=== PATIENT | female | born 1955 | race Caucasian/White ===

== ENCOUNTER → 2016-07-01 | Outpatient (CLI) | payer BC ==
[~2016-07-01] MED LIST: ACAI500C PO; CALC500T50 PO; CHOL10002 PO; CITA20SO PO; CYAN100016 SL; DOXY-103 PO; GLUC1CAP48 PO; HYDR12.58 PO; HYDR50TA6 PO; LEVO112T4 PO; LEVO137T3 PO; LYSI500T3 PO; MESA1.2T PO; MULT-245 PO; OMEP20CA9 PO; OMEP40CA5 PO; OXYB5TAB7 PO; PSEU120T9 PO; TRAM50TA PO; [UNRECOGNIZED DRUG - OTHER]; [UNRECOGNIZED DRUG - OTHER]; [UNRECOGNIZED DRUG - OTHER]; [UNRECOGNIZED DRUG - OTHER]; [UNRECOGNIZED DRUG - REMARK]; [UNRECOGNIZED DRUG - REMARK]; calcium mag zinc; protein; protein powder
[2016-07-01 11:59] LABS: BILIRUBIN,URINE NEGATIVE (NEG); GLUCOSE,URINE NEGATIVE (NEG); NITRITE,URINE NEGATIVE (NEG); PH,URINE 6.5; PROTEIN,URINE NEGATIVE (NEG-TRACE); UROBILINOGEN,URINE 0.2 mg/dL (0.2 mg/dL)
[2016-07-01 12:25] LABS: BACTERIA,URINE 0 /HPF (0-FEW); RBC,URINE OCC /HPF (0-2); SQUAMOUS EPITHELIAL CELL,UR OCC /LPF; WBC,URINE OCC /HPF (0-4)
--- NOTE | 2016-07-01 12:52 | EKG ---
[facility] [address] [place] [address] Test Date: 2016-07-01 Test Time: 12:51:49 Pat Name: MONICA HAN Department: Room: Gender: F Assisted Living Associate: : 1955 Requested By: ALMA DELIA LION Order Number: [id number] Reading MD: Woody Gan Measurements Intervals [place] Rate: 56 P: 36 NE: 154 QRS: -8 QRSD: 102 T: 46 QT: 442 QTc: 429 Interpretive Statements SINUS RHYTHM LEFTWARD AXIS LOW LIMB LEAD VOLTAGE QRS(T) CONTOUR ABNORMALITY CONSISTENT WITH ANTEROSEPTAL INFARCT Electronically Signed On 07-04-2016 8:26:41 CDT by Woody Gan
[2016-07-01 12:56] LABS: BASO # 0.1 x10^3/uL (0.0-0.2); BASO % 1 % (0-3); EOS % 4 % (0-3); HEMATOCRIT 39.4 % (36.0-47.0); HEMOGLOBIN 13.3 g/dL (12.0-15.5); LYMPH # 1.8 x10^3/uL (1.0-4.8); LYMPH % 27 % (24-48); MEAN CORPUSCULAR HEMOGLOBIN 30 pg (25-35); MEAN CORPUSCULAR HGB CONC 34 g/dL (31-37); MEAN CORPUSCULAR VOLUME 90 fL (79-100); MONO % 7 % (0-9); NEUT % 61 % (31-73); PLATELET COUNT 285 x10^3/uL (140-400); RED BLOOD COUNT 4.36 x10^6/uL (3.50-5.40); RED CELL DISTRIBUTION WIDTH 12.6 % (11.5-14.5); WHITE BLOOD COUNT 6.6 x10^3/uL (4.0-11.0)
[2016-07-01 13:02] LABS: ALBUMIN 4.1 g/dL (3.4-5.0); CALCIUM 9.2 mg/dL (8.5-10.1); CREATININE 0.7 mg/dL (0.6-1.0); GFR 85.6; POTASSIUM 3.4 mmol/L (3.5-5.1)
[2016-07-01 13:09] LABS: PROTHROMBIN TIME PATIENT 12.8 SEC (11.7-14.0)
--- NOTE | 2016-07-01 17:15 | RAD ---
PA and lateral chest radiographs 07/01/2016 Clinical history: Preoperative evaluation prior to hip replacement. PA and lateral digital radiographs of the chest were obtained. No previous studies are available for comparison. The cardiac silhouette is normal in size. The thoracic aorta is minimally tortuous. No acute pulmonary infiltrate is seen. No pleural effusion or pneumothorax is noted. Minimal degenerative changes are seen involving the thoracic spine. Impression: No acute abnormality is seen.
== END | disposition home or self-care (01) ==
LOC: SURGPAT 12:15
PROVIDERS: ATTEND Orthopaedic Surgery
DX: Z01.818 Encounter for other preprocedural examination (principal); M16.11 Unilateral primary osteoarthritis, right hip
CPT/HCPCS: 36415; 71020; 80048; 81001; 82040; 85027; 85610; 85651; 85730; 87086; 87641; 93005

== ENCOUNTER 2016-07-16 05:57 | Inpatient (IN) | payer BC ==
[~2016-07-16] VITALS: Ht 167.6 cm; Wt 74.8 kg
[2016-07-16] VITALS (8 sets, daily range): BP systolic 112–145; BP diastolic 59–75
[2016-07-16] MEDS ORDERED: TRANEXAMIC ACID 1,000 MG in IV NORMAL SALINE 50ML 50 ML INJ ONE ×2 (06:00→08:00)
[2016-07-16] MEDS ORDERED: LIDOCAINE 1% 1 ML SYRINGE. ID PRN (07:00)
[2016-07-16] MEDS ORDERED: IV RINGERS,LACTATED 1000ML 1,000 ML IV SCH (07:00)
[2016-07-16] MEDS ORDERED: MORPHINE SULFATE 2 MG/ML DISP.SYRIN. IV PRN ×2 (07:00→11:30)
[2016-07-16] MEDS ORDERED: fentaNYL PF VIAL 100 MCG/2 ML VIAL IV PRN ×3 (07:00→11:30)
[2016-07-16] MEDS ORDERED: HYDROmorphone 2 MG/ML VIAL IV PRN (07:00)
[2016-07-16] MEDS ORDERED: PROCHLORPERAZINE 10 MG/2 ML VIAL. IV PRN ×2 (07:00→11:30)
[2016-07-16 07:12] LABS: INR 1.1 (0.8-1.1); PROTHROMBIN TIME PATIENT 13.5 SEC (11.7-14.0)
[2016-07-16] MEDS ORDERED: PROPOFOL 20 ML IV ONE ×2 (07:15→08:18)
[2016-07-16] MEDS ORDERED: ROCURONIUM 50 MG/5 ML VIAL. ONE (07:16)
[2016-07-16] MEDS ORDERED: LIDOCAINE 2% 100 MG/5 ML SYRINGE. ONE (07:16)
[2016-07-16] MEDS ORDERED: ONDANSETRON PF 4 MG/2 ML VIAL. ONE (07:17)
[2016-07-16] MEDS ORDERED: FAMOTIDINE 20 MG/2 ML VIAL ONE (07:17)
[2016-07-16] MEDS ORDERED: MIDAZOLAM HCL/PF 2 MG/2 ML VIAL. ONE (07:18)
[2016-07-16] MEDS ORDERED: fentaNYL PF VIAL 250 MCG/5 ML VIAL ONE (07:18)
[2016-07-16] MEDS ORDERED: DEXAMETHASONE SOD PHOS 20 MG/5 ML VIAL. ONE (07:18)
[2016-07-16] MEDS ORDERED: HYDROCODONE/APAP 7.5/325MG TABLET. ONE (07:18)
[2016-07-16] MEDS ORDERED: HYDROCODONE/APAP 7.5/325MG TABLET. PO ONE (07:30)
[2016-07-16] MEDS ORDERED: MORPHINE SULFATE 5 MG, KETOROLAC TROMETHAMINE 30 MG, ROPIVacaine 0.5% PF 60 ML, EPINEPH... INT ART ONE ×5 (08:00)
--- NOTE | 2016-07-16 08:20 | HP ---
ADMIT DATE: 07/16/2016 CHIEF COMPLAINT: Right hip pain. HISTORY OF PRESENT ILLNESS: The patient has ongoing right hip and groin pain with activity, minimally responsive to intra-articular injection. She is exhausted, nonoperative treatment alternatives and wants to proceed with a total hip arthroplasty as we had previously discussed risks, benefits, postoperative course, specifically the anterior approach. PAST MEDICAL HISTORY: Significant for hypothyroidism, palpitations, allergic rhinitis, borderline hypertension and perimenopausal. PAST SURGICAL HISTORY: Thyroidectomy, middle finger surgery, ablation of her thyroid, eyelid surgery and lumbar laminectomy. FAMILY HISTORY: Noncontributory to the current situation. SOCIAL HISTORY: She is a former smoker, quit over 10 years ago, smoked about 20 years, , one child. Minimal social drinker of alcohol, denies drug use. MEDICATIONS: List is reviewed, tramadol. ALLERGIES: She has no known drug allergies, but tramadol gets her a little bit of a hot feeling. REVIEW OF SYSTEMS: Denies fever, chills, chest pain, shortness of breath or any other constitutional symptoms at this time. PHYSICAL EXAMINATION: VITAL SIGNS: Per admission sheet. HEENT: Atraumatic, normocephalic. HEART: Regular rate and rhythm. LUNGS: Clear to auscultation bilaterally. ABDOMEN: Benign. EXTREMITIES: Examination of the right hip reveals tenderness on any extremes of motion of the hip with pain throughout range of motion. Leg lengths are equal. Normal examination of the contralateral hip. IMAGING: X-rays show severe degenerative changes of the right hip with elimination of joint space, no bony collapse. IMPRESSION: Degenerative joint disease, right hip. TREATMENT PLAN: I had previously gone over with her the possibility of total hip arthroplasty. Risks, benefits, postoperative course including possibility of infection, nerve or blood vessel damage, medical or other anesthetic complications and instability, premature wear or loosening, among others. All her questions were answered. She is going to undergo total hip arthroplasty today with joint center admission to follow. ALMA DELIA LION MD DR: TONIA/rosalva JOB#: [id number] / [id number]
[2016-07-16] MEDS ORDERED: SEVOFLURANE > 120 MINUTES. IH ONE (08:33)
[2016-07-16] MEDS ORDERED: ePHEDrine PF IN SALINE 50 MG/5 ML DISP.SYRIN IV ONE (08:48)
[2016-07-16] MEDS ORDERED: GLYCOPYRROLATE 1 MG/5 ML VIAL. ONE (09:19)
[2016-07-16] MEDS ORDERED: NEOSTIGMINE METHYLSULFATE 5 MG/5 ML SYRINGE. ONE (09:19)
[2016-07-16] MEDS ORDERED: ALBUMIN HUMAN 5% 500 ML IV ONE (10:25)
[2016-07-16] MEDS ORDERED: MORPHINE SULFATE 10 MG/ML VIAL. ONE (10:50)
[2016-07-16] MEDS ORDERED: fentaNYL PF VIAL 100 MCG/2 ML VIAL ONE (11:21)
[2016-07-16] MEDS ORDERED: DEXTROSE 50% 25 GM / 50ML DISP.SYRIN. IV PRN (11:30)
[2016-07-16] MEDS ORDERED: HYDROCODONE/APAP 10/325 TABLET. PO PRN (11:30)
[2016-07-16] MEDS ORDERED: ZOLPIDEM 5 MG TABLET. PO PRN (11:30)
[2016-07-16] MEDS ORDERED: MORPHINE SULFATE 10 MG/ML VIAL. IV PRN (11:30)
[2016-07-16] MEDS ORDERED: diphenhydrAMINE 50 MG/ML VIAL IV PRN (11:30)
[2016-07-16] MEDS ORDERED: ACETAMINOPHEN 325 MG TABLET. PO PRN (11:30)
[2016-07-16] MEDS ORDERED: OXYCODONE/APAP 7.5/325 TABLET. PO PRN (11:30)
[2016-07-16] MEDS ORDERED: CALCIUM CARBONATE 500 MG TAB.CHEW PO PRN (11:30)
[2016-07-16] MEDS ORDERED: MORPHINE SULFATE 4 MG/ML DISP.SYRIN. IV PRN ×2 (11:30)
[2016-07-16] MEDS ORDERED: 0.9 % SODIUM CHLORIDE 10 ML DISP.SYRIN. IV PRN (11:30)
[2016-07-16] MEDS ORDERED: TRAMADOL 50 MG TABLET. PO PRN ×2 (11:30)
[2016-07-16] MEDS: fentaNYL PF VIAL 100 MCG/2 ML VIAL IV PRN ×4 (11:37→12:19)
--- NOTE | 2016-07-16 11:44 | PDOC ---
BRIEF OPERATIVE NOTE Date: Jul 16, 2016 Pre-Op Diagnosis djd right hip Post-Op Diagnosis same Procedure Performed right total hip arthroplasty Surgeon Li Hernandez Anesthesia Type: General Blood Loss 300cc Specimens Obtained femoral head to pathology Findings above Complications none ALMA DELIA LION MD Jul 16, 2016 11:44
--- NOTE | 2016-07-16 12:06 | RAD ---
Post radiograph History: Postoperative. Comparison: None. Findings: AP view of the pelvis. Right total hip arthroplasty is present. There is at least one acetabular screw. On this frontal view, relationship of femoral head component to the acetabular cup appears anatomic. Presence of soft tissue gas is compatible with recent postoperative status. Impression: Postoperative changes of right total hip arthroplasty.
[2016-07-16] MEDS: IV NORMAL SALINE 1000ML BAG 1,000 ML IV SCH ×2 (13:00→21:00)
[2016-07-16] MEDS: IV DEXTROSE 5 %-0.45 % NACL 1,000 ML IV SCH ×2 (13:01→23:00)
[2016-07-16] MEDS ORDERED: WARFARIN 7.5 MG TABLET. PO ONE (16:00)
[2016-07-16] MEDS: FERROUS SULFATE 325 MG TABLET. PO SCH (17:46)
[2016-07-16] MEDS: CELECOXIB 200 MG CAPSULE. PO SCH (20:32)
[2016-07-17 03:23] VITALS: BP 117/57
[2016-07-17] MEDS: HYDROCODONE/APAP 7.5/325MG TABLET. PO PRN ×2 (04:16→08:25)
[2016-07-17] MEDS ORDERED: MAGNESIUM HYDROXIDE 2,400 MG/30 ML ORAL.SUSP. PO PRN (06:00)
[2016-07-17 06:17] VITALS: BP 121/57
[2016-07-17] MEDS: LEVOTHYROXINE 112 MCG TABLET PO SCH (07:09)
[2016-07-17] MEDS: PANTOPRAZOLE 40 MG TABLET.DR. PO SCH (07:09)
[2016-07-17] MEDS: SENNOSIDES/DOCUSATE 8.6/50MG TABLET. PO SCH (08:23)
[2016-07-17] MEDS: PSEUDOEPHEDRINE ER 120 MG TABLET.ER. PO SCH (08:23)
[2016-07-17] MEDS: CHOLECALCIFEROL (VITAMIN D3) 1,000 UNIT TABLET PO SCH (08:23)
[2016-07-17] MEDS: OXYBUTYNIN CHLORIDE 5 MG TABLET PO SCH (08:24)
[2016-07-17] MEDS: CYANOCOBALAMIN (VITAMIN B-12) 1,000 MCG TABLET. PO SCH (08:24)
[2016-07-17] MEDS: CITALOPRAM 20 MG TABLET. PO SCH (08:24)
[2016-07-17] MEDS: FERROUS SULFATE 325 MG TABLET. PO SCH ×2 (08:24→17:18)
[2016-07-17] MEDS: MESALAMINE 1.2 GM TABLET.DR PO SCH (08:24)
[2016-07-17] MEDS: MULTIVITAMIN with MINERAL TABLET. PO SCH (08:24)
[2016-07-17] MEDS: CELECOXIB 200 MG CAPSULE. PO SCH ×2 (08:25→20:43)
[2016-07-17] MEDS: HYDROCHLOROTHIAZIDE 25 MG TABLET PO SCH (08:25)
[2016-07-17 08:40] LABS: INR 2.1 (0.8-1.1); PROTHROMBIN TIME PATIENT 22.3 SEC (11.7-14.0)
[2016-07-17 08:54] LABS: HEMATOCRIT 25.8 % (36.0-47.0); HEMOGLOBIN 8.9 g/dL (12.0-15.5)
[2016-07-17] MEDS ORDERED: NON FORMULARY ITEM (Multivitamin (Multi Vitamin Daily) 1 EACH) PO SCH (09:00)
[2016-07-17] MEDS: IV DEXTROSE 5 %-0.45 % NACL 1,000 ML IV SCH ×2 (09:00→11:39)
[2016-07-17] MEDS: OXYCODONE/APAP 5/325 TABLET. PO PRN ×2 (12:23→17:19)
--- NOTE | 2016-07-17 14:45 | PDOC ---
PROGRESS NOTES Subjective Subjective Problems overnight: Got up and around well with significantly less pain than preoperatively Objective Vital Signs Vital Signs Date Time Temp Pulse Resp B/P Pulse Ox O2 Delivery O2 Flow Rate FiO2 07/17/16 12:23 16 Room Air 07/17/16 09:30 95 07/17/16 06:26 98.4 98.4 07/17/16 06:17 72 121/57 07/16/16 15:15 2.0 Physical Exam Hip incision clean dry intact leg lengths equal good stability neurovascular status intact Labs Laboratory Tests Test 07/16/16 06:30 07/17/16 08:15 Prothrombin Time 13.5SEC (11.7-14.0) 22.3SEC (11.7-14.0) Prothromb Time International Ratio 1.1 (0.8-1.1) 2.1 (0.8-1.1) Activated Partial Thromboplast Time 32SEC (24-38) Hemoglobin 8.9g/dL (12.0-15.5) Hematocrit 25.8% (36.0-47.0) Mean Corpuscular Hemoglobin Concent 35g/dL (31-37) Laboratory Tests Test 07/17/16 08:15 Hemoglobin 8.9g/dL (12.0-15.5) Hematocrit 25.8% (36.0-47.0) Mean Corpuscular Hemoglobin Concent 35g/dL (31-37) Prothrombin Time 22.3SEC (11.7-14.0) Prothromb Time International Ratio 2.1 (0.8-1.1) Imaging Postop x-rays show equal leg lengths excellent positioning total hip arthroplasty components Assessment Assessment POD# [1], S/P [right total hip arthroplasty] Problems: Plan Plan of Care Weightbearing as tolerated no hip precautions secondary to anterior approach Coumadin anticoagulation Planned outpatient physical therapy on discharge ALMA DELIA LION MD Jul 17, 2016 14:45
[2016-07-17] MEDS ORDERED: BISACODYL 10 MG SUPP.RECT. PR PRN (16:00)
[2016-07-17 18:02] VITALS: BP 115/66
[2016-07-17] MEDS: IV NORMAL SALINE 1000ML BAG 1,000 ML IV SCH (20:43)
--- NOTE | 2016-07-17 23:16 | OP ---
DATE OF SURGERY: 07/16/2016 PREOPERATIVE DIAGNOSIS: Degenerative joint disease of right hip. POSTOPERATIVE DIAGNOSIS: Degenerative joint disease of right hip. PROCEDURE: Right total hip arthroplasty with anterior approach. SURGEON: Devin Jefferson M.D. ANESTHESIA: General. ESTIMATED BLOOD LOSS: 250 mL. COMPLICATIONS: None. OPERATIVE INDICATIONS: The patient is a 60-year-old female with severe right hip pain that has been ongoing for some time, unresponsive to nonoperative treatment and worsening to the point where it really affects her activities of daily living particularly over the past several months. I had gone over with her the x-ray findings, operative and nonoperative treatment options as well as risks, benefits, postoperative course of possible total hip arthroplasty. She prefers an anterior approach after the research that she has done and we talked about the possibility even with that surgery of leg length inequality, infection, nerve or blood vessel damage, premature wear or loosening, medical or other anesthetic complications among others. All of her questions were answered. Consent was obtained and she agrees to proceed with operative evaluation and treatment. DESCRIPTION OF PROCEDURE: The patient was identified, procedure verified, patient placed in the supine position on the [place] fracture table. After adequate amounts of general endotracheal anesthesia were administered, she was positioned on the table. Both legs were placed in traction boots and the right arm well padded and placed across the body. Right hip was prepped and draped in standard sterile fashion. After timeout was performed, the patient and procedure identified and verified. Fluoroscopic guidance was used to assess the initial position and leg lengths. An incision was made just distal and lateral to the anterior superior iliac spine along the line of the tensor fascia krystle. Dissection carried out down to the fascia of the tensor fascia krystle, which was divided and the tensor muscle was bluntly dissected and brought laterally. The interval between the tensor fascia krystle and rectus femoris was done, located and the anterior circumflex vessels were coagulated with electrocautery. Fat was elevated off the anterior capsule, was split in a T fashion. Femoral neck was then cut in a fashion under fluoroscopy and the femoral head was removed and sized at approximately a size 43. Labrum and contents of the fovea were excised. Reaming was carried up to a size 48 and a size 50 Cade Continuum acetabular liner was then impacted in anatomic alignment and a single superiorly directed acetabular screw helped to provide backup fixation. Trial 32 mm head liner was then placed and the femur was prepared by bringing the leg into extension, external rotation and abduction with a capsular release performed to avoid release of the external rotators posteriorly. Femur was then prepared with a box osteotome and canal finder and broaching carried out up to a size 4 with Avenir Chambers Stem, which was trial fit and leg lengths were equalized under fluoroscopic guidance. She had excellent stability in all planes with a +0 neck length and with a +35 was noted to have an increased leg length and offset. Trial components were then removed. Irrigation carried out with normal saline solution. A vitamin E 32 mm inside diameter acetabular neutral liner was impacted into place. Size 4 standard Avenir Cade stem was placed and given that the stem slightly than the broach. After trial fitting a +3.5, 32 mm ceramic head was tapped in place to engage the P[place]or taper and was reduced. Hip was then taken through range of motion. Leg lengths were reestablished exactly. Excellent stability and offset were noted under fluoroscopic guidance, thorough irrigation carried out with normal saline solution. Hemovac drain and pain catheter were placed. The tissues were infused with a pain catheter mixture throughout the pericapsular and subcutaneous space and the fascia was closed with #1 Vicryl sutures, subcutaneous closure with buried Vicryl suture in a layered fashion, subcuticular closure with 4-0 Monocryl. The patient was extubated and transferred to postop holding in stable condition having tolerated the procedure well. DEVIN JEFFERSON MD DR: TONIA/rosalva JOB#: [id number] / [id number] I Arana APRN
[2016-07-18 05:23] LABS: PROTHROMBIN TIME PATIENT 29.1 SEC (11.7-14.0)
[2016-07-18 06:09] VITALS: BP 104/64
[2016-07-18] MEDS: PANTOPRAZOLE 40 MG TABLET.DR. PO SCH (06:11)
[2016-07-18] MEDS: LEVOTHYROXINE 112 MCG TABLET PO SCH (06:11)
[2016-07-18] MEDS: OXYCODONE/APAP 5/325 TABLET. PO PRN ×4 (06:18→23:58)
[2016-07-18 07:02] LABS: HEMATOCRIT 23.7 % (36.0-47.0); HEMOGLOBIN 8.1 g/dL (12.0-15.5)
[2016-07-18] MEDS: CHOLECALCIFEROL (VITAMIN D3) 1,000 UNIT TABLET PO SCH (08:04)
[2016-07-18] MEDS: CYANOCOBALAMIN (VITAMIN B-12) 1,000 MCG TABLET. PO SCH (08:04)
[2016-07-18] MEDS: MULTIVITAMIN with MINERAL TABLET. PO SCH (08:05)
[2016-07-18] MEDS: OXYBUTYNIN CHLORIDE 5 MG TABLET PO SCH (08:05)
[2016-07-18] MEDS: FERROUS SULFATE 325 MG TABLET. PO SCH ×2 (08:05→17:00)
[2016-07-18] MEDS: SENNOSIDES/DOCUSATE 8.6/50MG TABLET. PO SCH (08:05)
[2016-07-18] MEDS: MESALAMINE 1.2 GM TABLET.DR PO SCH (08:06)
[2016-07-18] MEDS: PSEUDOEPHEDRINE ER 120 MG TABLET.ER. PO SCH (08:06)
[2016-07-18] MEDS: HYDROCHLOROTHIAZIDE 25 MG TABLET PO SCH (08:06)
[2016-07-18] MEDS: CITALOPRAM 20 MG TABLET. PO SCH (08:06)
[2016-07-18] MEDS: CELECOXIB 200 MG CAPSULE. PO SCH ×2 (08:06→21:15)
--- NOTE | 2016-07-18 10:45 | PDOC ---
ORTHO PROGRESS NOTES Subjective Patient reports that she is doing well. Complains of some muscle soreness in the leg but tolerable. Doing well with therapy. Pain is controlled with pain medication. Denies chest pain or shortness of breath, complains of some numbness around the incision. Post-op Day: 2 (Right total hip) Vitals Vital Signs Date Time Temp Pulse Resp B/P Pulse Ox O2 Delivery O2 Flow Rate FiO2 07/18/16 09:23 16 Room Air 07/18/16 07:16 97 07/18/16 06:09 99.3 78 104/64 99.3 Labs Laboratory Tests Test 07/17/16 08:15 07/18/16 04:20 Hemoglobin 8.9g/dL (12.0-15.5) 8.1g/dL (12.0-15.5) Hematocrit 25.8% (36.0-47.0) 23.7% (36.0-47.0) Mean Corpuscular Hemoglobin Concent 35g/dL (31-37) 34g/dL (31-37) Prothrombin Time 22.3SEC (11.7-14.0) 29.1SEC (11.7-14.0) Prothromb Time International Ratio 2.1 (0.8-1.1) 3.0 (0.8-1.1) Laboratory Tests Test 07/18/16 04:20 Hemoglobin 8.1g/dL (12.0-15.5) Hematocrit 23.7% (36.0-47.0) Mean Corpuscular Hemoglobin Concent 34g/dL (31-37) Prothrombin Time 29.1SEC (11.7-14.0) Prothromb Time International Ratio 3.0 (0.8-1.1) Notes Patient is awake and alert sitting up in chair. Breathing unlabored, no acute distress. Neurovascular intact right lower extremity. Incision covered with dressing, no drainage. Mild to moderate edema Problems: (1) Degenerative joint disease of right hip Assessment and Plan Continue physical therapy, weightbearing as tolerated Anticoagulation per pharmacy Pain controlled Anticipate discharge home tomorrow Problem Qualifiers (1) Degenerative joint disease of right hip: Osteoarthritis type: primary Qualified Code: M16.11 - Unilateral primary osteoarthritis, right hip SALEEM VILCHIS APRN Jul 18, 2016 10:45
[2016-07-18 17:38] VITALS: BP 130/65
[2016-07-19 05:00] LABS: INR 2.2 (0.8-1.1); PROTHROMBIN TIME PATIENT 22.7 SEC (11.7-14.0)
[2016-07-19 06:00] VITALS: BP 100/65
[2016-07-19] MEDS: PANTOPRAZOLE 40 MG TABLET.DR. PO SCH (06:20)
[2016-07-19] MEDS: LEVOTHYROXINE 112 MCG TABLET PO SCH (06:20)
[2016-07-19] MEDS: OXYCODONE/APAP 5/325 TABLET. PO PRN ×4 (06:23→15:46)
[2016-07-19] MEDS: MESALAMINE 1.2 GM TABLET.DR PO SCH (09:11)
[2016-07-19] MEDS: CYANOCOBALAMIN (VITAMIN B-12) 1,000 MCG TABLET. PO SCH (09:12)
[2016-07-19] MEDS: MULTIVITAMIN with MINERAL TABLET. PO SCH (09:12)
[2016-07-19] MEDS: CELECOXIB 200 MG CAPSULE. PO SCH (09:12)
[2016-07-19] MEDS: PSEUDOEPHEDRINE ER 120 MG TABLET.ER. PO SCH (09:12)
[2016-07-19] MEDS: HYDROCHLOROTHIAZIDE 25 MG TABLET PO SCH (09:13)
[2016-07-19] MEDS: CITALOPRAM 20 MG TABLET. PO SCH (09:13)
[2016-07-19] MEDS: FERROUS SULFATE 325 MG TABLET. PO SCH (09:13)
[2016-07-19] MEDS: CHOLECALCIFEROL (VITAMIN D3) 1,000 UNIT TABLET PO SCH (09:14)
[2016-07-19] MEDS: SENNOSIDES/DOCUSATE 8.6/50MG TABLET. PO SCH (09:14)
[2016-07-19] MEDS: OXYBUTYNIN CHLORIDE 5 MG TABLET PO SCH (09:14)
[2016-07-19 10:14] LABS: HEMATOCRIT 23.2 % (36.0-47.0); HEMOGLOBIN 8.1 g/dL (12.0-15.5)
[2016-07-19] MEDS ORDERED: WARF2TAB7 PO (11:15)
[2016-07-19] MEDS ORDERED: OXYC-323 PO (11:16)
[2016-07-19] MEDS ORDERED: FERR-26 PO (11:16)
[2016-07-19] MEDS ORDERED: SENN-37 PO (11:17)
[2016-07-19] MEDS ORDERED: WARFARIN 2 MG TABLET. PO ONE (13:00)
[2016-07-19 13:52] VITALS: BP 143/64
--- NOTE | 2016-07-19 14:18 | PATHOLOGY ---
PATHOLOGY REPORT * * * * * * * * FINAL DIAGNOSIS: Femoral head and soft tissue, "right hip bone and soft tissue," joint resection: - Degeneration of cartilage with eburnation consistent with degenerative joint disease. (ALEXANDRA:; d/t: 07/19/16) REPORT ELECTRONICALLY SIGNED BY: Prashant Beckett M.D. DATE/TIME: 07/19/2016 14:07 * * * * * * * * GROSS PATHOLOGY: Received in formalin labeled "Monica Han, right hip bone and tissue," is a femoral head measuring 5.2 x 5.2 x 3.5 cm in aggregate dimensions upon reconstruction, and separately submitted femoral neck measuring 3.5 x 3.2 x 1.0 cm. The articular surface is pale reyes to light reyes and granular in appearance with evidence of eburnation. Sectioning the bone reveals light reyes cut surfaces. Toe Lining Closer tissue is submitted in cassette A1, following decalcification. (CAA; 07/18/2016) INITIAL CPT CODE(S): A; 22908, 22039 Professional services performed by [id number] [place] [address] Technical services performed by [id number] at [address] [place] [address] [address], [place] [address]. SPECIMEN(S) RECEIVED: A.Right hip bone and tissue CLINICAL HISTORY: DJD right hip PATIENT: MONICA HAN /AGE: 7 1955 (Age: 60) PATIENT #: [id number] ALT CASE #: SPECIMEN COLLECTION DATE: 07/16/2016 SPECIMEN RECEIVED DATE: 07/17/2016 [facility] - [address] [place] [address] - PHONE: [phone] * * * END OF REPORT * * *
--- NOTE | 2016-07-19 19:59 | DS ---
DATE OF DISCHARGE: 07/19/2016 PRINCIPAL DIAGNOSIS: Degenerative joint disease of right hip. PROCEDURE: Right total hip arthroplasty. DISCHARGE INSTRUCTIONS: Include weightbearing as tolerated. No total hip precautions due to anterior approach. Report any redness, drainage, fever, chills, uncontrolled pain or other problems. Follow up with Dr. Jefferson in 2 weeks. DISCHARGE MEDICATIONS: Include Percocet 5/325 one p.o. q. 6 hours p.r.n. pain, Coumadin per anticoagulation clinic, note that she is on hold with Coumadin currently due to increased INR with her first dose. I also discussed with her maintaining a steady intake of especially green vegetables to help regulation of the Coumadin. BRIEF DESCRIPTION OF HOSPITAL COURSE: The patient underwent an uncomplicated total hip arthroplasty through an anterior approach on 07/16/2016. Postoperatively, was doing well, got up and around well with physical therapy, is very pleased with her current progress. Pain is well controlled and was discharged home with planned outpatient physical therapy. ALMA DELIA JEFFERSON MD DR: TONIA/rosalva JOB#: [id number] / [id number]
== END 2016-07-19 16:00 | disposition home or self-care (01) | DRG 470 ==
LOC: OPSVCIP 05:57 → 4 SOUTHEST 12:40
PROVIDERS: ADMIT Orthopaedic Surgery; ATTEND Orthopaedic Surgery
PROC: 0SR90JZ Replacement of Right Hip Joint with Synthetic Substitute, Open Approach (ICD-10-PCS; principal; 2016-07-17)
DX: M16.11 Unilateral primary osteoarthritis, right hip (principal); E03.9 Hypothyroidism, unspecified; I10 Essential (primary) hypertension; Z87.891 Personal history of nicotine dependence
CPT/HCPCS: 36415; 72170; 76000; 85014; 85018; 85610; 85730; 86850; 86900; 86901; 88304; 88311; C1887; J0171; J0690; J1100; J1885; J2250; J2270; J2405; J2704; J2710; J2795; J3010; J3490; J7030; J7120; P9045; S0028; 97116; 97150; 97530

== ENCOUNTER → 2017-05-28 | Outpatient (CLI) | payer BC | END | disposition home or self-care (01) | LOC: KCIC MAMMO 07:50 | DX: Z12.31 Encounter for screening mammogram for malignant neoplasm of breast (principal) | CPT/HCPCS: 77067 ==

== ENCOUNTER 2019-11-04 12:53 | Inpatient (IN) | payer BC, OTHER ==
[~2019-11-04] VITALS: Ht 170.2 cm; Wt 72.1 kg
[~2019-11-04 12:53] MED LIST changes: -CALC500T50 PO; +CALC500T54 PO; -CITA20SO PO; +CITA20SO2 PO; -DOXY-103 PO; +DOXY100T27 PO; +FERR325T14 PO; -LEVO112T4 PO; +LEVO112T49 PO; +LIALDA1.2 GM PO; -MESA1.2T PO; +OMEP20CA16 PO; -OMEP20CA9 PO; +OMEP40CA45 PO; -OMEP40CA5 PO; +OXYB5TAB10 PO; -OXYB5TAB7 PO; +OXYC1TAB15 PO; +SENN-37 PO; +WARF2TAB96 PO
[2019-11-04] MEDS ORDERED: MOME17SP NS (14:00)
[2019-11-04] MEDS ORDERED: LEVO112T49 PO (14:00)
[2019-11-04] MEDS ORDERED: GLUC-11 PO (14:00)
[2019-11-04] MEDS ORDERED: OMEG1CAP38 PO (14:00)
[2019-11-04] MEDS ORDERED: ONDANSETRON PF 4 MG/2 ML VIAL. IVP PRN (14:45)
[2019-11-04] MEDS ORDERED: MORPHINE SULFATE 2 MG/ML VIAL. IV PRN (14:45)
[2019-11-04 15:00] VITALS: BP 128/62
[2019-11-04] MEDS ORDERED: PIP/TAZO PER PHARMACY MC PRN (15:00)
[2019-11-04] MEDS ORDERED: PIPERACILLIN/TAZOBACTAM 3.375 GM in IV NORMAL SALINE 50ML 50 ML IV ONE (15:15)
--- NOTE | 2019-11-04 15:45 | NUR ---
Spoke with Maritza in OP radiology re: uploading pt's CD for viewing for Dr. Peralta. CD taken to radiology.
--- NOTE | 2019-11-04 16:00 | NUR ---
Covid swab collected and taken to lab.
[2019-11-04] MEDS: IV NORMAL SALINE 1000ML BAG 1,000 ML IV SCH (16:04)
[2019-11-04 19:00] VITALS: BP 127/60
[2019-11-04 19:07] LABS: CALCIUM 9.1 mg/dL (8.5-10.1); CREATININE 0.8 mg/dL (0.6-1.0); GFR 72.4; POTASSIUM 3.2 mmol/L (3.5-5.1)
--- NOTE | 2019-11-04 19:16 | PDOC1 ---
History and Physical Date of Service: DOS: DATE: 11/04/19 TIME: 19:13 Chief Complaint: Problems: (1) Degenerative joint disease of right hip Chief Complain: Abdominal pain History of Present Illness: HPI: This is a 64-year-old who is been having abdominal pain for about 48 hours She was sent to the imaging center as an outpatient Apparently her CAT scan showed appendicitis She was sent as a direct admit She is now been examined on medical floor where she is awaiting surgery I think is can happen tomorrow morning Allergies: Allergies: Coded Allergies: aluminum (Verified Allergy, Intermediate, 07/18/16) METAL nickel (Verified Allergy, Intermediate, 07/18/16) METAL Family History: Family History: Hypertension Social History: Social History: She does not drink smoke or take drugs Current Medications: Current Medications Current Medications Sodium Chloride 1,000 ml @ 75 mls/hr [id number] IV Last administered on 11/04/19at 16:04; Start 11/04/19 at 14:45 Ondansetron HCl (Zofran) 4 mg PRN Q4HRS PRN IVP NAUSEA/VOMITING; Start 11/04/19 at 14:45 Morphine Sulfate (Morphine Sulfate) 2 mg PRN Q2HR PRN IV MODERATE PAIN; Start 11/04/19 at 14:45 Piperacillin Sod/ Tazobactam Sod (Zosyn Per Pharmacy) 1 each PRN DAILY PRN MC SEE COMMENTS; Start 11/04/19 at 15:00 Piperacillin Sod/ Tazobactam Sod 3.375 gm/Sodium Chloride 50 ml @ 100 mls/hr 1X ONCE IV Last administered on 11/04/19at 17:28; Start 11/04/19 at 15:15; Stop 11/04/19 at 15:44; Status DC Piperacillin Sod/ Tazobactam Sod 3.375 gm/Sodium Chloride 50 ml @ 100 mls/hr Q6HRS IV ; Start 11/05/19 at 00:00 Active Scripts Active Reported Hinckley 3 Fish Oil Softgel (Hinckley-3 Fatty Acids/Fish Oil) 1 Each Capsule.dr 1 Each PO DAILY Cidaflex Tablet (Glucosamine Hcl/Chondr Piper A Na) 1 Each Tablet 1 Tab PO DAILY 30 Days Levothyroxine Sodium 112 Mcg Tablet 0.5 Tab PO DAILY 1/2 tab on Nasonex (Mometasone Furoate) 17 Gm [place].pump 1 [place] NS DAILY Sudafed 12-Hour (Pseudoephedrine Hcl) 120 Mg Tablet.er 1 Tab PO DAILY LAST DOSE THIS AM NEXT DOSE -FRIDAY Vitamin B-12 (Cyanocobalamin (Vitamin B-12)) 1,000 Mcg Tab.subl 1,000 Mcg SL DAILY LAST DOS THIS AM NEXT DOSE TOMORROW AM Lialda (Mesalamine) 1.2 Gm Tablet.dr 2 Tab PO DAILY LST DOS THIS AM NEXT DOS TOMORROW AM Levothyroxine Sodium 112 Mcg Tablet 1 Tab PO DAILY LST DOSE THIS AM NEXT DOSE TOMORROW AM Hydrochlorothiazide Tablet (Hydrochlorothiazide) 12.5 Mg Tablet 25 Mg PO DAILY LAST DOSE THIS AM NEXT DOSE TOMORROW AM Vitamin D (Cholecalciferol (Vitamin D3)) 1,000 Unit Tablet 1,000 Unit PO DAILY LAST DOS THIS AM NEXT DOSE TOMORROW AM Multi Vitamin Daily (Multivitamin) 1 Each Tablet 1 Each PO DAILY LAST DOS THIS AM NEXT DOSE TOMRROW AM Citalopram Hbr (Citalopram Hydrobromide) 20 Mg/10 Ml Solution 20 Mg PO DAILY LAST DOSE THIS AM NEXT DOSE TOMORROW Oxybutynin Chloride 5 Mg Tablet 5 Mg PO DAILY LAST DOSE THIS AM NEXT DOSE TOMORROW AM ROS: Review of Systems Review of System REVIEW OF SYSTEMS: GENERAL: Denies weakness SKIN: No bruising, hair changes or rashes. EYES: No blurred, double or loss of vision. NOSE AND THROAT: No history of nosebleeds, hoarseness or sore throat. HEART: No history of palpitations, chest pain or shortness of breath on exertion. LUNGS: Denies cough, hemoptysis, wheezing or shortness of breath. GASTROINTESTINAL: Had abdominal pain earlier but now is feeling better GENITOURINARY: No history of frequency, urgency, hesitancy or nocturia. NEUROLOGIC: Denies history of numbness, tingling, or tremor. PSYCHIATRIC: No history of panic, anxiety or depression. ENDOCRINE: No history of heat or cold intolerance, polyuria or polydipsia. EXTREMITIES: Denies joint pain, pain on walking or stiffness. Physical Exam: Vital Signs: Vital Signs Date Time Temp Pulse Resp B/P (MAP) Pulse Ox O2 Delivery O2 Flow Rate FiO2 11/04/19 15:00 98.6 67 18 128/62 (84) 97 Room Air 98.6 Physcial Exam: GEN: No apparent distress. Alert and oriented HEENT: Normal cephalic, atraumatic, external auditory canals are patent EYES: Extraocular muscles are intact, pupil are equally round and reactive to light and accommodation MUSCULOSKELETAL: Well developed , well nourished, good range of motion ENDOCRINE: No thyromegaly was palpated LYMPHATICS: No cervical chain or axillary nodes were noted HEMATOPOIETIC: No bruising NECK: Supple, no JVD, no thyromegaly was noted LUNGS: Clear to auscultation in all lung [place] without rhonchi or wheezing HEART: RRR, S!, S2 present. Peripheral pulses intact, no obvious murmurs noted ABDOMEN: Positive bowel sounds no tenderness at this time EXTREMITIES: The right hip is an old incision that is healed from her replacement NEUROLOGIC: Normal speech and tone. A&O x 3, moves all extremities, no obvious focal deficits PSYCHIATRIC: Normal affect, normal mood. Stable SKIN: No ulcerations or rashes, good skin turgor, no jaundice VASCULAR: Good capillary refill, neurovascular bundle appears to be intact Labs: Labs: Laboratory Tests Test 11/04/19 16:00 11/04/19 18:53 SARS-CoV-2 Antigen (Rapid) Negative (NEGATIVE) Sodium Level 140 mmol/L (136-145) Potassium Level 3.2 mmol/L (3.5-5.1) Chloride Level 101 mmol/L (98-107) Carbon Dioxide Level 28 mmol/L (21-32) Anion Gap 11 (6-14) Blood Urea Nitrogen 12 mg/dL (7-20) Creatinine 0.8 mg/dL (0.6-1.0) Estimated GFR (Cockcroft-Gault) 72.4 Glucose Level 95 mg/dL (70-99) Calcium Level 9.1 mg/dL (8.5-10.1) Laboratory Tests Test 11/04/19 16:00 11/04/19 18:53 SARS-CoV-2 Antigen (Rapid) Negative (NEGATIVE) Sodium Level 140 mmol/L (136-145) Potassium Level 3.2 mmol/L (3.5-5.1) Chloride Level 101 mmol/L (98-107) Carbon Dioxide Level 28 mmol/L (21-32) Anion Gap 11 (6-14) Blood Urea Nitrogen 12 mg/dL (7-20) Creatinine 0.8 mg/dL (0.6-1.0) Estimated GFR (Cockcroft-Gault) 72.4 Glucose Level 95 mg/dL (70-99) Calcium Level 9.1 mg/dL (8.5-10.1) Assessment/Plan Assessment/Plan Appendicitis Plan IV Zosyn Consult general surgery PRN pain meds Since she will be going to surgery till tomorrow morning I spoke with the nurse will give her some clear liquids Home meds if possible DVT prophylaxis Full code Trend labs Justicifation of Admission Dx: Justifications for Admission: Justification of Admission Dx: N/A JAYLYN RAMON III DO Nov 04, 2019 19:16
[2019-11-04 19:18] LABS: BASO % 1 % (0-3); EOS # 0.2 x10^3/uL (0.0-0.7); EOS % 3 % (0-3); HEMATOCRIT 39.8 % (36.0-47.0); HEMOGLOBIN 13.9 g/dL (12.0-15.5); LYMPH # 1.3 x10^3/uL (1.0-4.8); LYMPH % 16 % (24-48); MEAN CORPUSCULAR HEMOGLOBIN 32 pg (25-35); MEAN CORPUSCULAR HGB CONC 35 g/dL (31-37); MEAN CORPUSCULAR VOLUME 91 fL (79-100); MONO # 0.5 x10^3/uL (0.0-1.1); MONO % 6 % (0-9); NEUT # 5.7 x10^3/uL (1.8-7.7); NEUT % 74 % (31-73); PLATELET COUNT 232 x10^3/uL (140-400); RED BLOOD COUNT 4.37 x10^6/uL (3.50-5.40); RED CELL DISTRIBUTION WIDTH 12.4 % (11.5-14.5); WHITE BLOOD COUNT 7.7 x10^3/uL (4.0-11.0)
[2019-11-04 23:00] VITALS: BP 116/60
[2019-11-05] VITALS (11 sets, daily range): BP systolic 90–129; BP diastolic 54–71
[2019-11-05] MEDS: PIPERACILLIN/TAZOBACTAM 3.375 GM in IV NORMAL SALINE 50ML 50 ML IV SCH ×4 (00:10→18:23)
[2019-11-05] MEDS: IV NORMAL SALINE 1000ML BAG 1,000 ML IV SCH ×2 (04:15→16:29)
[2019-11-05] MEDS ORDERED: IV RINGERS,LACTATED 1000ML 1,000 ML IV SCH (08:12)
[2019-11-05] MEDS ORDERED: PROCHLORPERAZINE 10 MG/2 ML VIAL. IV PRN (08:15)
[2019-11-05] MEDS ORDERED: HYDROmorphone 2 MG/ML VIAL IV PRN (08:15)
[2019-11-05] MEDS ORDERED: MORPHINE SULFATE 2 MG/ML VIAL. IV PRN (08:15)
[2019-11-05] MEDS ORDERED: ONDANSETRON PF 4 MG/2 ML VIAL. IV PRN (08:15)
[2019-11-05] MEDS ORDERED: fentaNYL PF VIAL 100 MCG/2 ML VIAL IV PRN ×2 (08:15)
[2019-11-05] MEDS ORDERED: ONDANSETRON PF 4 MG/2 ML VIAL. ONE (09:16)
[2019-11-05] MEDS ORDERED: DEXAMETHASONE SOD PHOS 4 MG/ML VIAL ONE (09:16)
[2019-11-05] MEDS ORDERED: PROPOFOL 10 MG/ML (20ML) VIAL. IV ONE (09:16)
[2019-11-05] MEDS ORDERED: ROCURONIUM 50 MG/5 ML VIAL. ONE (09:16)
[2019-11-05] MEDS ORDERED: LIDOCAINE 2% PF 5 ML VIAL. ONE (09:16)
[2019-11-05] MEDS ORDERED: fentaNYL PF VIAL 100 MCG/2 ML VIAL ONE (09:17)
[2019-11-05] MEDS ORDERED: MIDAZOLAM HCL/PF 2 MG/2 ML VIAL. ONE (09:17)
[2019-11-05] MEDS ORDERED: SUCCINYLCHOLINE 200 MG/10 ML VIAL. ONE (09:26)
[2019-11-05] MEDS ORDERED: NEOSTIGMINE METHYLSULFATE 5 MG/5 ML SYRINGE. ONE (09:30)
[2019-11-05] MEDS ORDERED: GLYCOPYRROLATE 1 MG/5 ML VIAL. ONE (09:31)
--- NOTE | 2019-11-05 09:36 | PDOC ---
PROGRESS NOTES Date of Service: DATE: 11/05/19 TIME: 09:34 Chief Complaint Chief Complaint acute RLQ pain acute Appendicitis, direct admit [facility] History of Present Illness History of Present Illness IV Zosyn to OR with general surgery cont th epain meds Home meds if possible DVT prophylaxis Vitals Vitals Vital Signs Date Time Temp Pulse Resp B/P (MAP) Pulse Ox O2 Delivery O2 Flow Rate FiO2 11/05/19 08:59 97.9 58 15 117/58 97 Room Air 97.9 Physical Exam General: Alert Heart: Regular rate Extremities: No clubbing Skin: No rashes Labs LABS Laboratory Tests Test 11/04/19 16:00 11/04/19 18:53 SARS-CoV-2 Antigen (Rapid) Negative (NEGATIVE) White Blood Count 7.7 x10^3/uL (4.0-11.0) Red Blood Count 4.37 x10^6/uL (3.50-5.40) Hemoglobin 13.9 g/dL (12.0-15.5) Hematocrit 39.8 % (36.0-47.0) Mean Corpuscular Volume 91 fL (79-100) Mean Corpuscular Hemoglobin 32 pg (25-35) Mean Corpuscular Hemoglobin Concent 35 g/dL (31-37) Red Cell Distribution Width 12.4 % (11.5-14.5) Platelet Count 232 x10^3/uL (140-400) Neutrophils (%) (Auto) 74 % (31-73) Lymphocytes (%) (Auto) 16 % (24-48) Monocytes (%) (Auto) 6 % (0-9) Eosinophils (%) (Auto) 3 % (0-3) Basophils (%) (Auto) 1 % (0-3) Neutrophils # (Auto) 5.7 x10^3/uL (1.8-7.7) Lymphocytes # (Auto) 1.3 x10^3/uL (1.0-4.8) Monocytes # (Auto) 0.5 x10^3/uL (0.0-1.1) Eosinophils # (Auto) 0.2 x10^3/uL (0.0-0.7) Basophils # (Auto) 0.0 x10^3/uL (0.0-0.2) Sodium Level 140 mmol/L (136-145) Potassium Level 3.2 mmol/L (3.5-5.1) Chloride Level 101 mmol/L (98-107) Carbon Dioxide Level 28 mmol/L (21-32) Anion Gap 11 (6-14) Blood Urea Nitrogen 12 mg/dL (7-20) Creatinine 0.8 mg/dL (0.6-1.0) Estimated GFR (Cockcroft-Gault) 72.4 Glucose Level 95 mg/dL (70-99) Calcium Level 9.1 mg/dL (8.5-10.1) Comment Review of Relevant I have reviewed the following items bernarda (where applicable) has been applied. Labs Laboratory Tests Test 11/04/19 16:00 11/04/19 18:53 SARS-CoV-2 Antigen (Rapid) Negative (NEGATIVE) White Blood Count 7.7 x10^3/uL (4.0-11.0) Red Blood Count 4.37 x10^6/uL (3.50-5.40) Hemoglobin 13.9 g/dL (12.0-15.5) Hematocrit 39.8 % (36.0-47.0) Mean Corpuscular Volume 91 fL (79-100) Mean Corpuscular Hemoglobin 32 pg (25-35) Mean Corpuscular Hemoglobin Concent 35 g/dL (31-37) Red Cell Distribution Width 12.4 % (11.5-14.5) Platelet Count 232 x10^3/uL (140-400) Neutrophils (%) (Auto) 74 % (31-73) Lymphocytes (%) (Auto) 16 % (24-48) Monocytes (%) (Auto) 6 % (0-9) Eosinophils (%) (Auto) 3 % (0-3) Basophils (%) (Auto) 1 % (0-3) Neutrophils # (Auto) 5.7 x10^3/uL (1.8-7.7) Lymphocytes # (Auto) 1.3 x10^3/uL (1.0-4.8) Monocytes # (Auto) 0.5 x10^3/uL (0.0-1.1) Eosinophils # (Auto) 0.2 x10^3/uL (0.0-0.7) Basophils # (Auto) 0.0 x10^3/uL (0.0-0.2) Sodium Level 140 mmol/L (136-145) Potassium Level 3.2 mmol/L (3.5-5.1) Chloride Level 101 mmol/L (98-107) Carbon Dioxide Level 28 mmol/L (21-32) Anion Gap 11 (6-14) Blood Urea Nitrogen 12 mg/dL (7-20) Creatinine 0.8 mg/dL (0.6-1.0) Estimated GFR (Cockcroft-Gault) 72.4 Glucose Level 95 mg/dL (70-99) Calcium Level 9.1 mg/dL (8.5-10.1) Laboratory Tests Test 11/04/19 16:00 11/04/19 18:53 SARS-CoV-2 Antigen (Rapid) Negative (NEGATIVE) White Blood Count 7.7 x10^3/uL (4.0-11.0) Red Blood Count 4.37 x10^6/uL (3.50-5.40) Hemoglobin 13.9 g/dL (12.0-15.5) Hematocrit 39.8 % (36.0-47.0) Mean Corpuscular Volume 91 fL (79-100) Mean Corpuscular Hemoglobin 32 pg (25-35) Mean Corpuscular Hemoglobin Concent 35 g/dL (31-37) Red Cell Distribution Width 12.4 % (11.5-14.5) Platelet Count 232 x10^3/uL (140-400) Neutrophils (%) (Auto) 74 % (31-73) Lymphocytes (%) (Auto) 16 % (24-48) Monocytes (%) (Auto) 6 % (0-9) Eosinophils (%) (Auto) 3 % (0-3) Basophils (%) (Auto) 1 % (0-3) Neutrophils # (Auto) 5.7 x10^3/uL (1.8-7.7) Lymphocytes # (Auto) 1.3 x10^3/uL (1.0-4.8) Monocytes # (Auto) 0.5 x10^3/uL (0.0-1.1) Eosinophils # (Auto) 0.2 x10^3/uL (0.0-0.7) Basophils # (Auto) 0.0 x10^3/uL (0.0-0.2) Sodium Level 140 mmol/L (136-145) Potassium Level 3.2 mmol/L (3.5-5.1) Chloride Level 101 mmol/L (98-107) Carbon Dioxide Level 28 mmol/L (21-32) Anion Gap 11 (6-14) Blood Urea Nitrogen 12 mg/dL (7-20) Creatinine 0.8 mg/dL (0.6-1.0) Estimated GFR (Cockcroft-Gault) 72.4 Glucose Level 95 mg/dL (70-99) Calcium Level 9.1 mg/dL (8.5-10.1) Medications Current Medications Sodium Chloride 1,000 ml @ 75 mls/hr [id number] IV Last administered on 11/05/19at 04:15; Start 11/04/19 at 14:45 Ondansetron HCl (Zofran) 4 mg PRN Q4HRS PRN IVP NAUSEA/VOMITING; Start 11/04/19 at 14:45 Morphine Sulfate (Morphine Sulfate) 2 mg PRN Q2HR PRN IV MODERATE PAIN; Start 11/04/19 at 14:45 Piperacillin Sod/ Tazobactam Sod (Zosyn Per Pharmacy) 1 each PRN DAILY PRN [facility] SEE COMMENTS; Start 11/04/19 at 15:00 Piperacillin Sod/ Tazobactam Sod 3.375 gm/Sodium Chloride 50 ml @ 100 mls/hr 1X ONCE IV Last administered on 11/04/19at 17:28; Start 11/04/19 at 15:15; Stop 11/04/19 at 15:44; Status DC Piperacillin Sod/ Tazobactam Sod 3.375 gm/Sodium Chloride 50 ml @ 100 mls/hr Q6HRS IV Last administered on 11/05/19at 06:07; Start 11/05/19 at 00:00 Ondansetron HCl (Zofran) 4 mg PRN Q6HRS PRN IV NAUSEA/VOMITING; Start 11/05/19 at 08:15; Stop 11/05/19 at 20:00 Fentanyl Citrate (Fentanyl 2ml Vial) 25 mcg PRN Q5MIN PRN IV MILD PAIN 1-3; Start 11/05/19 at 08:15; Stop 11/05/19 at 20:00 Fentanyl Citrate (Fentanyl 2ml Vial) 50 mcg PRN Q5MIN PRN IV MODERATE TO SEVERE PAIN; Start 11/05/19 at 08:15; Stop 11/05/19 at 20:00 Morphine Sulfate (Morphine Sulfate) 1 mg PRN Q10MIN PRN IV SEVERE PAIN 7-10; Start 11/05/19 at 08:15; Stop 11/05/19 at 20:00 Ringer's Solution 1,000 ml @ 30 mls/hr Q24H IV ; Start 11/05/19 at 08:12; Stop 11/05/19 at 20:11 Hydromorphone HCl (Dilaudid) 0.5 mg PRN Q10MIN PRN IV SEV PAIN, Second choice; Start 11/05/19 at 08:15; Stop 11/05/19 at 20:00 Prochlorperazine Edisylate (Compazine) 5 mg PACU PRN PRN IV NAUSEA, MRX1; S tart 11/05/19 at 08:15; Stop 11/05/19 at 20:00 Propofol (Diprivan) 200 mg STK-MED ONCE IV ; Start 11/05/19 at 09:16; Stop 11/05/19 at 09:16; Status DC Lidocaine HCl (Lidocaine Pf 2% Vial) 5 ml STK-MED ONCE .ROUTE ; Start 11/05/19 at 09:16; Stop 11/05/19 at 09:17; Status DC Dexamethasone Sodium Phosphate (Decadron) 4 mg STK-MED ONCE .ROUTE ; Start 11/05/19 at 09:16; Stop 11/05/19 at 09:17; Status DC Ondansetron HCl (Zofran) 4 mg STK-MED ONCE .ROUTE ; Start 11/05/19 at 09:16; Stop 11/05/19 at 09:17; Status DC Rocuronium [place] (Zemuron) 50 mg STK-MED ONCE .ROUTE ; Start 11/05/19 at 09:16; Stop 11/05/19 at 09:17; Status DC Fentanyl Citrate (Fentanyl 2ml Vial) 100 mcg STK-MED ONCE .ROUTE ; Start 11/05/19 at 09:17; Stop 11/05/19 at 09:17; Status DC Midazolam HCl (Versed) 2 mg STK-MED ONCE .ROUTE ; Start 11/05/19 at 09:17; Stop 11/05/19 at 09:18; Status DC Succinylcholine Chloride (Anectine) 200 mg STK-MED ONCE .ROUTE ; Start 11/05/19 at 09:26; Stop 11/05/19 at 09:27; Status DC Neostigmine [place] (Neostigmine Methylsulfate) 5 mg STK-MED ONCE .ROUTE ; Start 11/05/19 at 09:30; Stop 11/05/19 at 09:31; Status DC Glycopyrrolate (Robinul) 1 mg STK-MED ONCE .ROUTE ; Start 11/05/19 at 09:31; Stop 11/05/19 at 09:31; Status DC Active Scripts Active Reported [place] 3 Fish Oil Softgel ([place]-3 Fatty Acids/Fish Oil) 1 Each Capsule.dr 1 Each PO DAILY Cidaflex Tablet (Glucosamine Hcl/Chondr Piper A Na) 1 Each Tablet 1 Tab PO DAILY 30 Days Levothyroxine Sodium 112 Mcg Tablet 0.5 Tab PO DAILY 1/2 tab on Nasonex (Mometasone Furoate) 17 Gm [place].pump 1 [place] NS DAILY Sudafed 12-Hour (Pseudoephedrine Hcl) 120 Mg Tablet.er 1 Tab PO DAILY LAST DOSE THIS AM NEXT DOSE -FRIDAY Vitamin B-12 (Cyanocobalamin (Vitamin B-12)) 1,000 Mcg Tab.subl 1,000 Mcg SL DAILY LAST DOS THIS AM NEXT DOSE TOMORROW AM Lialda (Mesalamine) 1.2 Gm Tablet.dr 2 Tab PO DAILY LST DOS THIS AM NEXT DOS TOMORROW AM Levothyroxine Sodium 112 Mcg Tablet 1 Tab PO DAILY LST DOSE THIS AM NEXT DOSE TOMORROW AM Hydrochlorothiazide Tablet (Hydrochlorothiazide) 12.5 Mg Tablet 25 Mg PO DAILY LAST DOSE THIS AM NEXT DOSE TOMORROW AM Vitamin D (Cholecalciferol (Vitamin D3)) 1,000 Unit Tablet 1,000 Unit PO DAILY LAST DOS THIS AM NEXT DOSE TOMORROW AM Multi Vitamin Daily (Multivitamin) 1 Each Tablet 1 Each PO DAILY LAST DOS THIS AM NEXT DOSE TOMRROW AM Citalopram Hbr (Citalopram Hydrobromide) 20 Mg/10 Ml Solution 20 Mg PO DAILY LAST DOSE THIS AM NEXT DOSE TOMORROW Oxybutynin Chloride 5 Mg Tablet 5 Mg PO DAILY LAST DOSE THIS AM NEXT DOSE TOMORROW AM Vitals/I & O Vital Sign - Last 24 Hours 11/04/19 11/04/19 11/04/19 11/04/19 13:20 15:00 19:00 20:00 Temp 98.6 98.6 98.6 98.6 Pulse 67 60 Resp 18 20 B/P (MAP) 128/62 (84) 127/60 (82) Pulse Ox 97 96 O2 Delivery Room Air Room Air Room Air Room Air 11/04/19 11/05/19 11/05/19 11/05/19 23:00 03:00 07:15 07:25 Temp 97.7 97.8 97.9 97.7 97.8 97.9 Pulse 59 56 60 Resp 23 22 18 B/P (MAP) 116/60 (78) 100/63 (75) 119/66 (83) Pulse Ox 97 96 95 O2 Delivery Room Air Room Air Room Air Room Air 11/05/19 08:59 Temp 97.9 97.9 Pulse 58 Resp 15 B/P (MAP) 117/58 Pulse Ox 97 O2 Delivery Room Air Intake and Output 11/04/19 11/04/19 11/05/19 15:00 23:00 07:00 Output Total 0 ml Balance 0 ml Justicifation of Admission Dx: Justifications for Admission: Justification of Admission Dx: N/A DEBORA SINCLAIR MD Nov 05, 2019 09:36
--- NOTE | 2019-11-05 09:41 | NUR ---
SW following. Discussed with RN, pt from home, room air, NPO, COVID-19 negative. Pt having surgery today. SW will continue to follow.
[2019-11-05] MEDS ORDERED: POTASSIUM CHLORIDE 20 MEQ TABLET.ER. PO ONE (09:45)
[2019-11-05] MEDS ORDERED: BUPIVACAINE-EPI 0.25%-1:200000 MPF 30 ML VIAL. ONE (09:48)
[2019-11-05] MEDS ORDERED: FAMOTIDINE 20 MG/2 ML VIAL ONE (10:33)
[2019-11-05] MEDS ORDERED: SEVOFLURANE 31 TO 60 MINUTES. IH ONE (10:37)
--- NOTE | 2019-11-05 10:57 | PDOC2 ---
CONSULT Date of Consult Date of Consult DATE: 11/05/19 TIME: 10:54 Reason for Consult Reason for Consult: Right lower quadrant pain Referring Physician Referring Physician: Soo Identification/Chief Complaint Chief Complaint Right lower quadrant abdominal pain Source Source: Patient History of Present Illness Reason for Visit: 64-year-old female who had right lower quadrant abdominal pain was seen as an outpatient and a urgent care clinic a CT scan was done outpatient which showed signs consistent with acute appendicitis she was direct admitted to the hospital Past Medical History Cardiovascular: No pertinent hx Pulmonary: No pertinent hx GI: Other (Colitis) Heme/Onc: No pertinent hx Hepatobiliary: No pertinent hx Psych: No pertinent hx Rheumatologic: No pertinent hx Infectious disease: No pertinent hx ENT: No pertinent hx Renal/: No pertinent hx Endocrine: No pertinent hx Dermatology: No pertinent hx Past Surgical History Past Surgical History: Other (Hip replacement), No pertinent history Current Medications Current Medications Current Medications Sodium Chloride 1,000 ml @ 75 mls/hr [id number] IV Last administered on 11/05/19at 04:15; Start 11/04/19 at 14:45 Ondansetron HCl (Zofran) 4 mg PRN Q4HRS PRN IVP NAUSEA/VOMITING; Start 11/04/19 at 14:45 Morphine Sulfate (Morphine Sulfate) 2 mg PRN Q2HR PRN IV MODERATE PAIN; Start 11/04/19 at 14:45 Piperacillin Sod/ Tazobactam Sod (Zosyn Per Pharmacy) 1 each PRN DAILY PRN [facility] SEE COMMENTS; Start 11/04/19 at 15:00 Piperacillin Sod/ Tazobactam Sod 3.375 gm/Sodium Chloride 50 ml @ 100 mls/hr 1X ONCE IV Last administered on 11/04/19at 17:28; Start 11/04/19 at 15:15; Stop 11/04/19 at 15:44; Status DC Piperacillin Sod/ Tazobactam Sod 3.375 gm/Sodium Chloride 50 ml @ 100 mls/hr Q6HRS IV Last administered on 11/05/19at 06:07; Start 11/05/19 at 00:00 Ondansetron HCl (Zofran) 4 mg PRN Q6HRS PRN IV NAUSEA/VOMITING; Start 11/05/19 at 08:15; Stop 11/05/19 at 20:00 Fentanyl Citrate (Fentanyl 2ml Vial) 25 mcg PRN Q5MIN PRN IV MILD PAIN 1-3; Start 11/05/19 at 08:15; Stop 11/05/19 at 20:00 Fentanyl Citrate (Fentanyl 2ml Vial) 50 mcg PRN Q5MIN PRN IV MODERATE TO SEVERE PAIN; Start 11/05/19 at 08:15; Stop 11/05/19 at 20:00 Morphine Sulfate (Morphine Sulfate) 1 mg PRN Q10MIN PRN IV SEVERE PAIN 7-10; Start 11/05/19 at 08:15; Stop 11/05/19 at 20:00 Ringer's Solution 1,000 ml @ 30 mls/hr Q24H IV ; Start 11/05/19 at 08:12; Stop 11/05/19 at 20:11 Hydromorphone HCl (Dilaudid) 0.5 mg PRN Q10MIN PRN IV SEV PAIN, Second choice; Start 11/05/19 at 08:15; Stop 11/05/19 at 20:00 Prochlorperazine Edisylate (Compazine) 5 mg PACU PRN PRN IV NAUSEA, MRX1; Start 11/05/19 at 08:15; Stop 11/05/19 at 20:00 Propofol (Diprivan) 200 mg STK-MED ONCE IV ; Start 11/05/19 at 09:16; Stop at 09:16; Status DC Lidocaine HCl (Lidocaine Pf 2% Vial) 5 ml STK-MED ONCE .ROUTE ; Start 11/05/19 at 09:16; Stop 11/05/19 at 09:17; Status DC Dexamethasone Sodium Phosphate (Decadron) 4 mg STK-MED ONCE .ROUTE ; Start 11/05/19 at 09:16; Stop 11/05/19 at 09:17; Status DC Ondansetron HCl (Zofran) 4 mg STK-MED ONCE .ROUTE ; Start 11/05/19 at 09:16; Stop 11/05/19 at 09:17; Status DC Rocuronium [place] (Zemuron) 50 mg STK-MED ONCE .ROUTE ; Start 11/05/19 at 09:16; Stop 11/05/19 at 09:17; Status DC Fentanyl Citrate (Fentanyl 2ml Vial) 100 mcg STK-MED ONCE .ROUTE ; Start 11/05/19 at 09:17; Stop 11/05/19 at 09:17; Status DC Midazolam HCl (Versed) 2 mg STK-MED ONCE .ROUTE ; Start 11/05/19 at 09:17; Stop 11/05/19 at 09:18; Status DC Succinylcholine Chloride (Anectine) 200 mg STK-MED ONCE .ROUTE ; Start 11/05/19 at 09:26; Stop 11/05/19 at 09:27; Status DC Neostigmine [place] (Neostigmine Methylsulfate) 5 mg STK-MED ONCE .ROUTE ; Start 11/05/19 at 09:30; Stop 11/05/19 at 09:31; Status DC Glycopyrrolate (Robinul) 1 mg STK-MED ONCE .ROUTE ; Start 11/05/19 at 09:31; Stop 11/05/19 at 09:31; Status DC Potassium Chloride (Klor-Con) 40 meq 1X ONCE PO ; Start 11/05/19 at 09:45; Stop 11/05/19 at 09:46; Status DC Bupivacaine HCl/ Epinephrine Bitart (Sensorcaine-Epi 0.25%-1:306122 Mpf) 30 ml STK-MED ONCE .ROUTE Last administered on 11/05/19at 10:25; Start 11/05/19 at 09:48; Stop 11/05/19 at 09:49; Status DC Famotidine (Pepcid Vial) 20 mg STK-MED ONCE .ROUTE ; Start 11/05/19 at 10:33; Stop 11/05/19 at 10:34; Status DC Sevoflurane (Ultane) 30 ml STK-MED ONCE IH ; Start 11/05/19 at 10:37; Stop 11/05/19 at 10:37; Status DC Active Scripts Active Reported [place] 3 Fish Oil Softgel ([place]-3 Fatty Acids/Fish Oil) 1 Each Capsule.dr 1 Each PO DAILY Cidaflex Tablet (Glucosamine Hcl/Chondr Piper A Na) 1 Each Tablet 1 Tab PO DAILY 30 Days Levothyroxine Sodium 112 Mcg Tablet 0.5 Tab PO DAILY 1/2 tab on Nasonex (Mometasone Furoate) 17 Gm [place].pump 1 [place] NS DAILY Sudafed 12-Hour (Pseudoephedrine Hcl) 120 Mg Tablet.er 1 Tab PO DAILY LAST DOSE THIS AM NEXT DOSE -FRIDAY Vitamin B-12 (Cyanocobalamin (Vitamin B-12)) 1,000 Mcg Tab.subl 1,000 Mcg SL DAILY LAST DOS THIS AM NEXT DOSE TOMORROW AM Lialda (Mesalamine) 1.2 Gm Tablet.dr 2 Tab PO DAILY LST DOS THIS AM NEXT DOS TOMORROW AM Levothyroxine Sodium 112 Mcg Tablet 1 Tab PO DAILY LST DOSE THIS AM NEXT DOSE TOMORROW AM Hydrochlorothiazide Tablet (Hydrochlorothiazide) 12.5 Mg Tablet 25 Mg PO DAILY LAST DOSE THIS AM NEXT DOSE TOMORROW AM Vitamin D (Cholecalciferol (Vitamin D3)) 1,000 Unit Tablet 1,000 Unit PO DAILY LAST DOS THIS AM NEXT DOSE TOMORROW AM Multi Vitamin Daily (Multivitamin) 1 Each Tablet 1 Each PO DAILY LAST DOS THIS AM NEXT DOSE TOMRROW AM Citalopram Hbr (Citalopram Hydrobromide) 20 Mg/10 Ml Solution 20 Mg PO DAILY LAST DOSE THIS AM NEXT DOSE TOMORROW Oxybutynin Chloride 5 Mg Tablet 5 Mg PO DAILY LAST DOSE THIS AM NEXT DOSE TOMORROW AM Allergies Allergies: Coded Allergies: aluminum (Verified Allergy, Intermediate, 07/18/16) METAL nickel (Verified Allergy, Intermediate, 07/18/16) METAL ROS Gastrointestinal: Yes Nausea, Yes Abdominal Pain Physical Exam General: Alert, Oriented X3, Cooperative, mild distress HEENT: Atraumatic, EOMI Lungs: Clear to auscultation, Normal air movement Heart: Regular rate, No murmurs Abdomen: Normal bowel sounds, Soft, Other (Tender to palpation right lower quadrant) Extremities: No edema Skin: No significant lesion Neuro: Normal speech Psych/Mental Status: Mental status NL Vitals VITALS Vital Signs Date Time Temp Pulse Resp B/P (MAP) Pulse Ox O2 Delivery O2 Flow Rate FiO2 11/05/19 08:59 97.9 58 15 117/58 97 Room Air 97.9 Labs Labs Laboratory Tests Test 11/04/19 16:00 11/04/19 18:53 SARS-CoV-2 Antigen (Rapid) Negative (NEGATIVE) White Blood Count 7.7 x10^3/uL (4.0-11.0) Red Blood Count 4.37 x10^6/uL (3.50-5.40) Hemoglobin 13.9 g/dL (12.0-15.5) Hematocrit 39.8 % (36.0-47.0) Mean Corpuscular Volume 91 fL (79-100) Mean Corpuscular Hemoglobin 32 pg (25-35) Mean Corpuscular Hemoglobin Concent 35 g/dL (31-37) Red Cell Distribution Width 12.4 % (11.5-14.5) Platelet Count 232 x10^3/uL (140-400) Neutrophils (%) (Auto) 74 % (31-73) Lymphocytes (%) (Auto) 16 % (24-48) Monocytes (%) (Auto) 6 % (0-9) Eosinophils (%) (Auto) 3 % (0-3) Basophils (%) (Auto) 1 % (0-3) Neutrophils # (Auto) 5.7 x10^3/uL (1.8-7.7) Lymphocytes # (Auto) 1.3 x10^3/uL (1.0-4.8) Monocytes # (Auto) 0.5 x10^3/uL (0.0-1.1) Eosinophils # (Auto) 0.2 x10^3/uL (0.0-0.7) Basophils # (Auto) 0.0 x10^3/uL (0.0-0.2) Sodium Level 140 mmol/L (136-145) Potassium Level 3.2 mmol/L (3.5-5.1) Chloride Level 101 mmol/L (98-107) Carbon Dioxide Level 28 mmol/L (21-32) Anion Gap 11 (6-14) Blood Urea Nitrogen 12 mg/dL (7-20) Creatinine 0.8 mg/dL (0.6-1.0) Estimated GFR (Cockcroft-Gault) 72.4 Glucose Level 95 mg/dL (70-99) Calcium Level 9.1 mg/dL (8.5-10.1) Laboratory Tests Test 11/04/19 16:00 11/04/19 18:53 SARS-CoV-2 Antigen (Rapid) Negative (NEGATIVE) White Blood Count 7.7 x10^3/uL (4.0-11.0) Red Blood Count 4.37 x10^6/uL (3.50-5.40) Hemoglobin 13.9 g/dL (12.0-15.5) Hematocrit 39.8 % (36.0-47.0) Mean Corpuscular Volume 91 fL (79-100) Mean Corpuscular Hemoglobin 32 pg (25-35) Mean Corpuscular Hemoglobin Concent 35 g/dL (31-37) Red Cell Distribution Width 12.4 % (11.5-14.5) Platelet Count 232 x10^3/uL (140-400) Neutrophils (%) (Auto) 74 % (31-73) Lymphocytes (%) (Auto) 16 % (24-48) Monocytes (%) (Auto) 6 % (0-9) Eosinophils (%) (Auto) 3 % (0-3) Basophils (%) (Auto) 1 % (0-3) Neutrophils # (Auto) 5.7 x10^3/uL (1.8-7.7) Lymphocytes # (Auto) 1.3 x10^3/uL (1.0-4.8) Monocytes # (Auto) 0.5 x10^3/uL (0.0-1.1) Eosinophils # (Auto) 0.2 x10^3/uL (0.0-0.7) Basophils # (Auto) 0.0 x10^3/uL (0.0-0.2) Sodium Level 140 mmol/L (136-145) Potassium Level 3.2 mmol/L (3.5-5.1) Chloride Level 101 mmol/L (98-107) Carbon Dioxide Level 28 mmol/L (21-32) Anion Gap 11 (6-14) Blood Urea Nitrogen 12 mg/dL (7-20) Creatinine 0.8 mg/dL (0.6-1.0) Estimated GFR (Cockcroft-Gault) 72.4 Glucose Level 95 mg/dL (70-99) Calcium Level 9.1 mg/dL (8.5-10.1) Images Images CT as in the history of present illness Assessment/Plan Assessment/Plan Acute appendicitis plan laparoscopic appendectomy BHARATH IGLESIAS MD Nov 05, 2019 10:57
--- NOTE | 2019-11-05 10:59 | PDOC4 ---
Operative Note Operative Note Date: November 05, 2019 at 10:57 AM Preoperative diagnosis: Acute appendicitis Postoperative diagnosis: Same Procedure: Laparoscopic appendectomy Surgeon: Fabian Specimen: Appendix Dictation: Patient is 64-year-old female has right lower quadrant abdominal pain nausea no vomiting and a CT scan showing signs consistent with acute appendicitis. Procedure laparoscopic appendectomy was explained to the patient detail all risk benefits were also discussed including bleeding infection injury to intra-abdominal contents possibly necessitating further or open operations alternatives to this procedure also discussed with the patient who seemed to understand and gave both verbal and written consent to have the procedure performed. Patient was taken to the operating room placed in the supine position general anesthesia was initiated once patient was sleeping intubated her abdomen was prepped and draped usual sterile fashion using ChloraPrep. An area just below the umbilicus was injected with quarter percent Marcaine with epinephrine incision was made 11 blade scalpel and a varies needle was placed within the abdomen creating pneumoperitoneum once this was complete 12 mm port was placed and a 5 mm camera was placed within the abdomen with. The abdomen was inspected was noted that the appendix was retrocecal and somewhat inflamed. A 5 mm port was placed under direct visualization in the right midabdomen and a 5 mm port was placed in the low midline under direct visualization. The appendix was grasped retracted towards the anterior abdominal wall a window was propagated the base of the appendix through the mesoappendix with [place] dissector and a Endo KYMBERLY stapler was used to staple and transect the base of the appendix the rest the appendix was freed up along the mesentery until another load of Endo KYMBERLY stapler could be used to staple and transect the mesoappendix once appendix was freed up from its attachments was placed in Endo Catch bag moving the umbilicus. Right lower quadrant pelvis were irrigated and suctioned dry hemostasis deemed to be appropriate the pneumoperitoneum was reduced all ports were removed the fascial defect at the umbilicus was closed with a [id number] Vicryl suture and skin was reapproximated all port sites for subcuticular Monocryl Mastisol Steri-Strips and island dressings were applied. Patient was awakened and extubated in the operating room taken to recovery in stable condition all sponge instrument needle counts listed as correct estimated blood loss 10 mL BHARATH IGLESIAS MD Nov 05, 2019 10:59
[2019-11-05] MEDS ORDERED: oxyCODONE/APAP 5/325 1 TAB TABLET PO PRN ×2 (11:00)
[2019-11-05] MEDS: KETOROLAC 15 MG/ML VIAL. IVP SCH ×2 (12:30→18:23)
[2019-11-05] MEDS: LACTOBACILLUS RHAMNOSUS GG 1 CAPSULE. PO SCH (21:05)
[2019-11-06] MEDS: PIPERACILLIN/TAZOBACTAM 3.375 GM in IV NORMAL SALINE 50ML 50 ML IV SCH ×3 (00:49→12:00)
[2019-11-06 03:00] VITALS: BP 90/49
[2019-11-06] MEDS: KETOROLAC 15 MG/ML VIAL. IVP SCH ×2 (05:42)
[2019-11-06] MEDS: IV NORMAL SALINE 1000ML BAG 1,000 ML IV SCH (05:44)
[2019-11-06 07:00] VITALS: BP 97/57
[2019-11-06 08:18] LABS: BASO % 1 % (0-3); EOS # 0.2 x10^3/uL (0.0-0.7); EOS % 3 % (0-3); HEMATOCRIT 34.6 % (36.0-47.0); HEMOGLOBIN 11.9 g/dL (12.0-15.5); LYMPH % 19 % (24-48); MEAN CORPUSCULAR HEMOGLOBIN 32 pg (25-35); MEAN CORPUSCULAR HGB CONC 34 g/dL (31-37); MEAN CORPUSCULAR VOLUME 92 fL (79-100); MONO # 0.4 x10^3/uL (0.0-1.1); MONO % 7 % (0-9); NEUT # 3.8 x10^3/uL (1.8-7.7); NEUT % 70 % (31-73); PLATELET COUNT 233 x10^3/uL (140-400); RED BLOOD COUNT 3.77 x10^6/uL (3.50-5.40); RED CELL DISTRIBUTION WIDTH 12.8 % (11.5-14.5); WHITE BLOOD COUNT 5.4 x10^3/uL (4.0-11.0)
--- NOTE | 2019-11-06 08:42 | PDOC ---
SURGICAL PROGRESS NOTE DATE: 11/06/19 TIME: 08:41 Subjective Patient doing much better this morning tolerated diet minimal pain Vital Signs Vital Signs Date Time Temp Pulse Resp B/P (MAP) Pulse Ox O2 Delivery O2 Flow Rate FiO2 11/06/19 07:00 98.0 51 18 97/57 (70) 95 Room Air 98.0 11/05/19 23:05 10.0 I&O Intake and Output 11/06/19 07:00 Intake Total 850 ml Output Total 110 ml Balance 740 ml Intake Oral 0 ml IV Total 850 ml Output Urine Total 100 ml Estimated Blood Loss 10 ml # Voids 2 PATIENT HAS A BEDOLLA: No General: Alert, Oriented X3, Cooperative, mild distress Abdomen: Normal bowel sounds, Soft, Other (Mild incisional tenderness wounds clean dry and intact) Labs Laboratory Tests Test 11/04/19 16:00 11/04/19 18:53 11/06/19 08:00 Coronavirus (PCR) Not detected (Not Detected) SARS-CoV-2 Antigen (Rapid) Negative (NEGATIVE) White Blood Count 7.7 x10^3/uL (4.0-11.0) 5.4 x10^3/uL (4.0-11.0) Red Blood Count 4.37 x10^6/uL (3.50-5.40) 3.77 x10^6/uL (3.50-5.40) Hemoglobin 13.9 g/dL (12.0-15.5) 11.9 g/dL (12.0-15.5) Hematocrit 39.8 % (36.0-47.0) 34.6 % (36.0-47.0) Mean Corpuscular Volume 91 fL (79-100) 92 fL (79-100) Mean Corpuscular Hemoglobin 32 pg (25-35) 32 pg (25-35) Mean Corpuscular Hemoglobin Concent 35 g/dL (31-37) 34 g/dL (31-37) Red Cell Distribution Width 12.4 % (11.5-14.5) 12.8 % (11.5-14.5) Platelet Count 232 x10^3/uL (140-400) 233 x10^3/uL (140-400) Neutrophils (%) (Auto) 74 % (31-73) 70 % (31-73) Lymphocytes (%) (Auto) 16 % (24-48) 19 % (24-48) Monocytes (%) (Auto) 6 % (0-9) 7 % (0-9) Eosinophils (%) (Auto) 3 % (0-3) 3 % (0-3) Basophils (%) (Auto) 1 % (0-3) 1 % (0-3) Neutrophils # (Auto) 5.7 x10^3/uL (1.8-7.7) 3.8 x10^3/uL (1.8-7.7) Lymphocytes # (Auto) 1.3 x10^3/uL (1.0-4.8) 1.0 x10^3/uL (1.0-4.8) Monocytes # (Auto) 0.5 x10^3/uL (0.0-1.1) 0.4 x10^3/uL (0.0-1.1) Eosinophils # (Auto) 0.2 x10^3/uL (0.0-0.7) 0.2 x10^3/uL (0.0-0.7) Basophils # (Auto) 0.0 x10^3/uL (0.0-0.2) 0.0 x10^3/uL (0.0-0.2) Sodium Level 140 mmol/L (136-145) Potassium Level 3.2 mmol/L (3.5-5.1) Chloride Level 101 mmol/L (98-107) Carbon Dioxide Level 28 mmol/L (21-32) Anion Gap 11 (6-14) Blood Urea Nitrogen 12 mg/dL (7-20) Creatinine 0.8 mg/dL (0.6-1.0) Estimated GFR (Cockcroft-Gault) 72.4 Glucose Level 95 mg/dL (70-99) Calcium Level 9.1 mg/dL (8.5-10.1) Laboratory Tests Test 11/06/19 08:00 White Blood Count 5.4 x10^3/uL (4.0-11.0) Red Blood Count 3.77 x10^6/uL (3.50-5.40) Hemoglobin 11.9 g/dL (12.0-15.5) Hematocrit 34.6 % (36.0-47.0) Mean Corpuscular Volume 92 fL (79-100) Mean Corpuscular Hemoglobin 32 pg (25-35) Mean Corpuscular Hemoglobin Concent 34 g/dL (31-37) Red Cell Distribution Width 12.8 % (11.5-14.5) Platelet Count 233 x10^3/uL (140-400) Neutrophils (%) (Auto) 70 % (31-73) Lymphocytes (%) (Auto) 19 % (24-48) Monocytes (%) (Auto) 7 % (0-9) Eosinophils (%) (Auto) 3 % (0-3) Basophils (%) (Auto) 1 % (0-3) Neutrophils # (Auto) 3.8 x10^3/uL (1.8-7.7) Lymphocytes # (Auto) 1.0 x10^3/uL (1.0-4.8) Monocytes # (Auto) 0.4 x10^3/uL (0.0-1.1) Eosinophils # (Auto) 0.2 x10^3/uL (0.0-0.7) Basophils # (Auto) 0.0 x10^3/uL (0.0-0.2) Assessment/Plan Status post laparoscopic appendectomy white count this morning 5.4 stable from surgical standpoint could be discharged. Follow-up with Dr. Iglesias in 2 weeks Justicifation of Admission Dx: Justifications for Admission: Justification of Admission Dx: N/A BHARATH IGLESIAS MD Nov 06, 2019 08:42
[2019-11-06] MEDS ORDERED: HYDR-2145 PO (10:50)
[2019-11-06] MEDS ORDERED: VITA1TAB19 PO (10:59)
[2019-11-06 11:00] VITALS: BP 109/66
[2019-11-06] MEDS ORDERED: LYSI500T8 PO (11:10)
[2019-11-06] MEDS ORDERED: CA C1TAB58 PO (11:11)
[2019-11-06] MEDS ORDERED: [UNRECOGNIZED DRUG - OTHER] PO (11:13)
[2019-11-06] MEDS: LACTOBACILLUS RHAMNOSUS GG 1 CAPSULE. PO SCH (11:16)
--- NOTE | 2019-11-06 12:24 | PDOC3 ---
Discharge Summary Visit Information Date of Admission: Nov 04, 2019 Date of Discharge: Nov 06, 2019 Final Diagnosis acute RLQ pain acute Appendicitis, collagenous colitis, stable Brief Hospital Course Allergies Allergies Coded Allergies Type Severity Reaction Last Updated Verified aluminum Allergy Intermediate 07/18/16 Yes nickel Allergy Intermediate 07/18/16 Yes Vital Signs Vital Signs Date Time Temp Pulse Resp B/P (MAP) Pulse Ox O2 Delivery O2 Flow Rate FiO2 11/06/19 11:00 98.3 61 18 109/66 (80) 98 Room Air 98.3 11/05/19 23:05 10.0 Lab Results Laboratory Tests Test 11/04/19 16:00 11/04/19 18:53 11/06/19 08:00 Coronavirus (PCR) Not detected (Not Detected) SARS-CoV-2 Antigen (Rapid) Negative (NEGATIVE) White Blood Count 7.7 x10^3/uL (4.0-11.0) 5.4 x10^3/uL (4.0-11.0) Red Blood Count 4.37 x10^6/uL (3.50-5.40) 3.77 x10^6/uL (3.50-5.40) Hemoglobin 13.9 g/dL (12.0-15.5) 11.9 g/dL (12.0-15.5) Hematocrit 39.8 % (36.0-47.0) 34.6 % (36.0-47.0) Mean Corpuscular Volume 91 fL (79-100) 92 fL (79-100) Mean Corpuscular Hemoglobin 32 pg (25-35) 32 pg (25-35) Mean Corpuscular Hemoglobin Concent 35 g/dL (31-37) 34 g/dL (31-37) Red Cell Distribution Width 12.4 % (11.5-14.5) 12.8 % (11.5-14.5) Platelet Count 232 x10^3/uL (140-400) 233 x10^3/uL (140-400) Neutrophils (%) (Auto) 74 % (31-73) 70 % (31-73) Lymphocytes (%) (Auto) 16 % (24-48) 19 % (24-48) Monocytes (%) (Auto) 6 % (0-9) 7 % (0-9) Eosinophils (%) (Auto) 3 % (0-3) 3 % (0-3) Basophils (%) (Auto) 1 % (0-3) 1 % (0-3) Neutrophils # (Auto) 5.7 x10^3/uL (1.8-7.7) 3.8 x10^3/uL (1.8-7.7) Lymphocytes # (Auto) 1.3 x10^3/uL (1.0-4.8) 1.0 x10^3/uL (1.0-4.8) Monocytes # (Auto) 0.5 x10^3/uL (0.0-1.1) 0.4 x10^3/uL (0.0-1.1) Eosinophils # (Auto) 0.2 x10^3/uL (0.0-0.7) 0.2 x10^3/uL (0.0-0.7) Basophils # (Auto) 0.0 x10^3/uL (0.0-0.2) 0.0 x10^3/uL (0.0-0.2) Sodium Level 140 mmol/L (136-145) Potassium Level 3.2 mmol/L (3.5-5.1) Chloride Level 101 mmol/L (98-107) Carbon Dioxide Level 28 mmol/L (21-32) Anion Gap 11 (6-14) Blood Urea Nitrogen 12 mg/dL (7-20) Creatinine 0.8 mg/dL (0.6-1.0) Estimated GFR (Cockcroft-Gault) 72.4 Glucose Level 95 mg/dL (70-99) Calcium Level 9.1 mg/dL (8.5-10.1) Laboratory Tests Test 11/06/19 08:00 White Blood Count 5.4 x10^3/uL (4.0-11.0) Red Blood Count 3.77 x10^6/uL (3.50-5.40) Hemoglobin 11.9 g/dL (12.0-15.5) Hematocrit 34.6 % (36.0-47.0) Mean Corpuscular Volume 92 fL (79-100) Mean Corpuscular Hemoglobin 32 pg (25-35) Mean Corpuscular Hemoglobin Concent 34 g/dL (31-37) Red Cell Distribution Width 12.8 % (11.5-14.5) Platelet Count 233 x10^3/uL (140-400) Neutrophils (%) (Auto) 70 % (31-73) Lymphocytes (%) (Auto) 19 % (24-48) Monocytes (%) (Auto) 7 % (0-9) Eosinophils (%) (Auto) 3 % (0-3) Basophils (%) (Auto) 1 % (0-3) Neutrophils # (Auto) 3.8 x10^3/uL (1.8-7.7) Lymphocytes # (Auto) 1.0 x10^3/uL (1.0-4.8) Monocytes # (Auto) 0.4 x10^3/uL (0.0-1.1) Eosinophils # (Auto) 0.2 x10^3/uL (0.0-0.7) Basophils # (Auto) 0.0 x10^3/uL (0.0-0.2) Brief Hospital Course Ms. Huggins is a 64 old female, admit direct from clinic, acute abd pain, appy, acute, zosyn for 2 days, better, DC without prob Discharge Information Condition at Discharge: Improved Follow Up: Weeks Disposition/Orders: D/C to Home Scheduled Ca Carb & Gluc/Mag Ox & Gluc (Calcium Magnesium Caplet) 1 Each Tablet, 1 EACH PO DAILY for supplement, (Reported) Entered as Reported by: Jada Bautista on 11/06/19 1111 Last Taken: one daily on Unknown Date & Time Last Action: Converted on 11/06/191215 by DEBORA SINCLAIR Cholecalciferol (Vitamin D3) (Vitamin D) 1,000 Unit Tablet, 1,000 UNIT PO DAILY for SUPPLEMENT, (Reported) LAST DOS THIS AM NEXT DOSE TOMORROW AM Entered as Reported by: RENETTA ALLRED on 04/23/13 0935 Last Action: Continued on 11/06/191214 by DEBORA SINCLAIR Citalopram Hydrobromide (Citalopram Hbr) 20 Mg/10 Ml Solution, 20 MG PO DAILY for DEPRESSION/ANXIETY, (Reported) LAST DOSE THIS AM NEXT DOSE TOMORROW Entered as Reported by: RENETTA ALLRED on 04/23/13 0932 Last Action: Converted on 11/06/191214 by DEBORA SINCLAIR Glucosamine Hcl/Chondr Piper A Na (Cidaflex Tablet) 1 Each Tablet, 1 TAB PO DAILY for supplement for 30 Days, #30 Ref 0 (Reported) Entered as Reported by: DANISHA PITTS on 11/04/19 1400 Last Action: Converted on 11/06/191215 by DEBORA SINCLAIR Hydrochlorothiazide (Hydrochlorothiazide Tablet ) 25 Mg Tablet, 25 MG PO DAILY for DIURETIC/BP, Ref 0 (Reported) Entered as Reported by: Jada Bautista on 11/06/19 1050 Last Taken: 25mg PO daily on Unknown Date & Time Last Action: Reviewed on 11/06/19 1100 by Jada Bautista Levothyroxine Sodium (Levothyroxine Sodium) 112 Mcg Tablet, 1 TAB PO DAILY for THYROID, #30 Ref 5 (Reported) LST DOSE THIS AM NEXT DOSE TOMORROW AM Entered as Reported by: REBECCA PEREZ on 07/01/16 1417 Last Action: HELD on 11/06/191215 by DEBORA SINCLAIR Levothyroxine Sodium (Levothyroxine Sodium) 112 Mcg Tablet, 0.5 TAB PO DAILY for thyroid, #30 Ref 5 (Reported) 1/2 tab on Sundays Entered as Reported by: DANISHA PITTS on 11/04/19 1400 Last Action: Continued on 11/06/191215 by DEBORA SINCLAIR Lysine (L-Lysine) 500 Mg Tablet, 1 TAB PO DAILY for supplement for 30 Days, #30 Ref 0 (Reported) Entered as Reported by: Jada Bautista on 11/06/19 1110 Last Taken: 500 mg PO daily on Unknown Date & Time Last Action: Converted on 11/06/191215 by DEBORA SINCLAIR Mesalamine (Lialda) 1.2 Gm Tablet.dr, 2 TAB PO DAILY for ABDOMEN/COLON, #180 Ref 3 (Reported) LST DOS THIS AM NEXT DOS TOMORROW AM Entered as Reported by: REBECCA PEREZ on 07/01/16 1418 Last Action: Converted on 11/06/191215 by DEBORA SINCLAIR Multivitamin (Multi Vitamin Daily) 1 Each Tablet, 1 EACH PO DAILY for SUPPLEMENT, (Reported) LAST DOS THIS AM NEXT DOSE TOMRROW AM Entered as Reported by: RENETTA ALLRED on 04/23/13 0935 Last Action: Converted on 11/06/191214 by DEBORA SINCLAIR [place]-3 Fatty Acids/Fish Oil ([place] 3 Fish Oil Softgel) 1 Each Capsule.dr, 1 EACH PO DAILY for supplement, (Reported) Entered as Reported by: DANISHA PITTS on 11/04/19 1400 Last Action: Converted on 11/06/191215 by DEBORA SINCLAIR Oxybutynin Chloride (Oxybutynin Chloride) 5 Mg Tablet, 5 MG PO DAILY for BLADDER, (Reported) LAST DOSE THIS AM NEXT DOSE TOMORROW AM Entered as Reported by: RENETTA ALLRED on 04/23/13 0932 Last Action: Continued on 11/06/191214 by DEBORA SINCLAIR Pseudoephedrine Hcl (Sudafed 12-Hour) 120 Mg Tablet.er, 1 TAB PO DAILY for ALLERGIES, #20 (Reported) LAST DOSE THIS AM NEXT DOSE -FRIDAY Entered as Reported by: REBECCA PEREZ on 07/01/16 1422 Last Action: Continued on 11/06/191215 by DEBORA SINCLAIR Vitamin B Complex (B Complex) 1 Each Tablet, 1 TAB PO DAILY for supplement for 30 Days, #30 Ref 0 (Reported) Entered as Reported by: Jada Bautista on 11/06/19 1059 Last Taken: 1,000 mcg daily on Unknown Date & Time Last Action: Continued on 11/06/191215 by DEBORA SINCLAIR [kinko biloba] , 1 CAP PO DAILY for memory supplement, (Reported) Entered as Reported by: Jada Bautista on 11/06/19 1113 Last Taken: one capsule daily on Unknown Date & Time Last Action: Converted on 11/06/191215 by DEBORA SINCLAIR Scheduled PRN Mometasone Furoate (Nasonex) 17 Gm Remington.pump, 1 SPRAY NS PRN DAILY PRN for ALLERGIES, #1 Ref 3 (Reported) Entered as Reported by: DANISHA PITTS on 11/04/19 1400 Last Action: Converted on 11/06/191215 by DEBORA SINCLAIR Discontinued Medications Hydrochlorothiazide (Hydrochlorothiazide Tablet) 12.5 Mg Tablet, 25 MG PO DAILY for DIURETIC, Ref 0 (Reported) LAST DOSE THIS AM NEXT DOSE TOMORROW AM Entered as Reported by: REBECCA PEREZ on 07/01/16 1417 Last Action: Discontinued on 11/06/19 105 by Jada Bautista Patient Instructions Patient Instructions face to facemasek 32 min coordination Justicifation of Admission Dx: Justifications for Admission: Justification of Admission Dx: N/A DEBORA SINCLAIR MD Nov 06, 2019 12:24
[2019-11-06] MEDS ORDERED: VITAMIN B COMPLEX TABLET. PO SCH (13:00)
[2019-11-06] MEDS ORDERED: CITALOPRAM 20 MG TABLET. PO SCH (13:00)
[2019-11-06] MEDS ORDERED: OXYBUTYNIN CHLORIDE 5 MG TABLET PO SCH (13:00)
[2019-11-06] MEDS ORDERED: MULTIVITAMIN with MINERAL TABLET. PO SCH (13:00)
[2019-11-06] MEDS ORDERED: PSEUDOEPHEDRINE ER 120 MG TABLET.ER. PO SCH (13:00)
[2019-11-06] MEDS ORDERED: OMEGA-3 FATTY ACIDS/FISH OIL 1,000 MG CAPSULE. PO SCH (13:00)
[2019-11-06] MEDS ORDERED: LEVOTHYROXINE 112 MCG TABLET PO SCH (13:00)
--- NOTE | 2019-11-06 13:53 | NUR ---
Discharge teaching completed. IV site discontinued without difficulty. Wound care teaching done and bandaids changed. Pt states she understands her discharge teaching and home medications and follow up instructions. She was discharged to home with family; escorted out by staff via w/c. She has pain med Rx in hand
[2019-11-07] MEDS ORDERED: NON FORMULARY ITEM (Lysine (L-Lysine) 1 TAB) PO SCH (09:00)
[2019-11-07] MEDS ORDERED: CHOLECALCIFEROL (VITAMIN D3) 1,000 UNIT TABLET PO SCH (09:00)
[2019-11-07] MEDS ORDERED: GLUC PO SCH (09:00)
[2019-11-07] MEDS ORDERED: CA CARB PO SCH (09:00)
[2019-11-07] MEDS ORDERED: MAG OX PO SCH (09:00)
[2019-11-07] MEDS ORDERED: NON FORMULARY ITEM (Glucosamine Hcl/Chondr Su A Na (Cidaflex Tablet) 1 TAB) PO SCH (09:00)
[2019-11-07] MEDS ORDERED: [UNRECOGNIZED DRUG - OTHER] PO SCH (09:00)
[2019-11-07] MEDS ORDERED: FLUTICASONE 50MCG/NASAL SPRAY 16GM BOTTLE. NS PRN (09:00)
[2019-11-07] MEDS ORDERED: MESALAMINE PO SCH (09:00)
--- NOTE | 2019-11-08 19:07 | PATHOLOGY ---
[facility] Accession Number: [id number] . 01 Material submitted: . appendix - APPENDIX . 01 Clinical history: . Appendicitis . 02 Diagnosis: Appendix, laparoscopic appendectomy: - Acute appendicitis. (KAVEHM:zay; 11/08/2019) R 11/08/2019 1626 Local . 02 Comment: There is a possible focus of perforation of the distal end of the appendix. There is no evidence of malignancy. (JPM:zay; 11/08/2019) . 02 Electronically signed: . Barak Aggarwal MD, Pathologist NPI- [id number] . 01 Gross description: . The specimen is received in formalin, labeled "Adam Spinner, appendix and contents". Received is a vermiform appendix measuring 8.9 cm in length by up to 0.8 cm in diameter with a small amount of attached mesoappendix. The serosal surface is pink-reyes to pink-chavez red and shaggy in appearance with a possible area of perforation identified at the distal margin. The surgical margin is closed with a line of neli. The neli are removed and the new margin is inked black. Sectioning reveals a pinpoint to patent lumen. The specimen is submitted representatively as follows: . A1 proximal margin and bisected tip A2 entire possible area of perforation A3 additional cross sections of appendix. ([facility]; 11/05/2019) QAC/QAC 11/08/2019 1620 Local . 02 Pathologist provided ICD-10: K35.80 . 02 CPT . 346551 Specimen Comment: A courtesy copy of this report has been sent to [phone] Specimen Comment: [phone], Specimen Comment: Report sent to Dr.WILDERDR SINCLAIR / DR LLANES Performed at: 01 [facility] [address], [place], [place] [id number] MD Willy Rojas MD Phone: [phone] Performed at: 02 [facility] [address] [place], [place] [id number] MD Barak Aggarwal MD Phone: [phone]
== END 2019-11-06 13:55 | disposition home or self-care (01) | DRG 343 ==
LOC: 4 NORTH 12:53
PROVIDERS: ADMIT Internal Medicine; ATTEND Internal Medicine
PROC: 0DTJ4ZZ Resection of Appendix, Percutaneous Endoscopic Approach (ICD-10-PCS; principal; 2019-11-05 10:30)
DX: K35.80 Unspecified acute appendicitis (principal); K52.831 Collagenous colitis; M16.11 Unilateral primary osteoarthritis, right hip; Z82.49 Family history of ischemic heart disease and other diseases of the circulatory system; Z96.649 Presence of unspecified artificial hip joint; Z20.828 Contact with and (suspected) exposure to other viral communicable diseases
CPT/HCPCS: 36415; 80048; 85025; 87426; A7015; J0330; J1100; J1885; J2250; J2405; J2543; J2704; J2710; J3010; J3490; J7030; G0378; U0003-CS

== ENCOUNTER → 2020-01-24 | Outpatient (CLI) | payer BC, OTHER ==
[~2020-01-24] MED LIST changes: +CA C1TAB58 PO; +GLUC-11 PO; +HYDR-2145 PO; +LYSI500T8 PO; +MOME17SP NS; +OMEG1CAP38 PO; +VITA1TAB19 PO; +[UNRECOGNIZED DRUG - OTHER] PO
--- NOTE | 2020-01-24 14:25 | KCIC ---
EXAM: DUAL ENERGY X-RAY ABSORPTIOMETRY (DEXA). HISTORY: Postmenopausal screening. FINDINGS: The lowest measured T-score is -1.2 in the left hip, based on a bone mineral density of 0.790 g/cm^2. Refer to the worksheets for full detail. No comparison examinations are available. IMPRESSION: Low bone mass. Bone mineral density yields a T-score between -1.0 and -2.5. Fracture risk is increased. METHODOLOGY: Dual energy x-ray absorptiometry was performed to measure bone mineral density. The following analysis is based on the 2019 Official Positions of the International Society for Clinical Densitometry: Measurements of the hips and the average of L1-L4 are preferred. When the spine and/or hip cannot be feasibly measured or interpreted, or in the setting of hyperparathyroidism, distal radial bone mineral density may be measured. The lumbar spine T-score is based on the average bone mineral density of L1-L4. In the setting of artifact or anatomic abnormality, some lumbar levels may be excluded, and the remaining levels used for calculation. A single lumbar level is not used for diagnosis, and if only a single level is available for assessment, another anatomic site will be used to assign a diagnosis. The hip T-score is based on the bone mineral density measurement of the femoral neck or total proximal femur of either side, whichever is lowest. Bilateral mean values are not used for diagnosis. The forearm T-score is derived from 33% of the distal radius of the nondominant forearm. Electronically signed by: Saira Luz MD (01/24/2020 2:22 PM) [id number]
--- NOTE | 2020-01-24 15:47 | KCIC ---
Bilateral digital screening mammograms with 3-D tomosynthesis: Reason for examination: Routine screening. Comparison is made to previous study dated 05/28/2017. Bilateral mammograms in CC and oblique projections were obtained with 2-D imaging and 3-D tomosynthesis imaging on a Siemens Inspiration unit and reviewed on the workstation. Interpretation was made with the benefit of CAD. The skin and nipples show no abnormalities. No abnormal axillary lymph nodes are seen. The breast parenchyma is extremely dense. (Breast density: Category D.) There are no dominant masses, suspicious calcifications or architectural distortion. Impression: No evidence of malignancy. Recommend routine screening. Your patient's mammogram demonstrates that she has dense breast tissue (breast density category C or D), which could hide abnormalities, and if she has other risk factors for breast cancer that have been identified, she might benefit from supplemental screening tests that may be suggested by you as her ordering physician. Dense breast tissue, in and of itself, is a relatively common condition. Therefore, this information is not provided to cause undue concern, but rather to raise your awareness and to promote discussion with your patient regarding the presence of other risk factors, in addition to dense breast tissue. Your patient's mammography results will be sent to her. BI-RAD Category 2: Benign. "Our facility is accredited by the [employer] Mammography Program." This patient's information has been entered into a reminder system for the patient to be notified with the results of her examination and a target date for the next mammogram. Electronically signed by: Dorie Snowden MD (01/24/2020 3:44 PM) [id number]
== END ==
LOC: KCIC MAMMO 13:45
PROVIDERS: ATTEND Physician Assistant Medical
DX: Z12.31 Encounter for screening mammogram for malignant neoplasm of breast (principal); Z13.820 Encounter for screening for osteoporosis; Z78.0 Asymptomatic menopausal state
CPT/HCPCS: 77063; 77067; 77080

== ENCOUNTER → 2020-03-10 | Day surgery (SDC) | payer BC, OTHER ==
[~2020-03-10] MED LIST changes: +IV RINGERS,LACTATED 1000ML 1,000 ML IV SCH; +LIDOCAINE 2% PF 5 ML VIAL. ONE; +PROPOFOL 10 MG/ML (20ML) VIAL. IV ONE
[2020-03-10 10:20] VITALS: BP 132/69
--- NOTE | 2020-03-10 14:36 | CONS ---
DATE OF CONSULTATION: 03/10/2020 REFERRING PHYSICIAN: Danyell Cota. REASON FOR CONSULTATION: Colorectal screening. HISTORY OF PRESENT ILLNESS: A 64-year-old female with past medical history significant for osteoarthrosis, status post hip replacement, hypertension, hypothyroidism, history of collagenous colitis, on mesalamine therapy, seen for interval colonoscopy. Bowel habits have been controlled with mesalamine daily. There has been no bleeding. Weight and appetite are stable. She is otherwise without additional complaints. PAST MEDICAL HISTORY: Hypertension, diarrhea, collagenous colitis, hypothyroidism, reflux. PAST SURGICAL HISTORY: Thyroid surgery, , breast surgery, back surgery, joint replacement surgery, appendectomy. ALLERGIES: ALUMINUM AND NICKEL. MEDICATIONS: Include cholecalciferol, citalopram, glucosamine, hydrochlorothiazide, levothyroxine, mesalamine, multivitamin, oxybutynin, and pseudoephedrine. FAMILY AND SOCIAL HISTORY: Noncontributory. REVIEW OF SYSTEMS: Per records. PHYSICAL EXAMINATION: GENERAL: Reveals a well-nourished, well-developed female who is alert, cooperative, in no acute distress. VITAL SIGNS: Temperature 98.1, pulse 65, respirations 20. LUNGS: Clear. CARDIOVASCULAR: Reveals an S1, S2 without S3, S4 or appreciable murmur. ABDOMEN: Reveals a soft abdomen, normal bowel sounds, without appreciable hepatosplenomegaly. IMPRESSION: Colorectal screening is recommended at this time. Risks and benefits of procedure including risk of hemorrhage and perforation were discussed. The patient is willing to proceed. SAHARA SCHAFFER MD DR: ZEB/rosalva JOB#: [id number] / [id number] DANYELL Walker
== END | disposition home or self-care (01) ==
LOC: ENDOS 07:58
PROVIDERS: ATTEND Internal Medicine Gastroenterology
DX: Z12.11 Encounter for screening for malignant neoplasm of colon (principal); K64.0 First degree hemorrhoids; K57.30 Diverticulosis of large intestine without perforation or abscess without bleeding; I10 Essential (primary) hypertension; K21.9 Gastro-esophageal reflux disease without esophagitis; M19.90 Unspecified osteoarthritis, unspecified site; E03.9 Hypothyroidism, unspecified; F32.9 Major depressive disorder, single episode, unspecified; Z87.891 Personal history of nicotine dependence; Z79.899 Other long term (current) drug therapy; Z98.890 Other specified postprocedural states; Z88.8 Allergy status to other drugs, medicaments and biological substances
CPT/HCPCS: 45378; J2704